=== PATIENT | male | born 1950 | race Caucasian/White ===

== ENCOUNTER 2018-05-21 13:30 | Emergency (ER) | payer MEDICARE, BC, SELFPAY ==
[2018-05-21 13:37] VITALS: BP 129/72; PULSE 70; RESP 18; TEMP 36.7; O2SAT 94
--- NOTE | 2018-05-21 13:44 | ED.GENADUL_ITS ---
Discharge Plan Disposition Patient Disposition: HOME Condition: Stable Discharge Details Chief Complaint: EyeProblem Clinical Impression: Abrasion of cornea, left Primary Care Provider: Nathan Iniguez ED Provider: Talat Lyons Home Meds and New Rx's Prescriptions: New erythromycin 5 mg/gram (0.5 %) ointment 1 applic OP TID 5 Days Qty: 1 RF: 0 No Action diphenhydramine-acetaminophen [Acetaminophen PM] 1 EACH tablet 1 ea PO HS PRNRF: 0 meclizine 25 MG tablet 25 mg PO TID PRNQty: 20 RF: 0 aspirin [Aspir-81] 81 MG tablet,delayed release (DR/EC) 81 mg PO DAILY Qty: 100 RF: 3 potassium chloride 10 MEQ capsule, extended release 10 meq PO DAILY Qty: 60 RF: 6 triamterene-hydrochlorothiazid 1 EACH tablet 1 ea PO DAILY Qty: 90 RF: 3 Atorvastatin Calcium 10 MG tablet 10 mg PO DAILY Qty: 90 RF: 3 hydroxyzine HCl 25 mg tablet 25 mg PO QID PRN Qty: 60 RF: 0 naproxen sodium [Aleve] 220 MG capsule 220 mg PO PRN RF: 0 Discharge Instructions Instructions: Corneal Abrasion (ED) Medical Decision Making PT states he was showering when he had sensation of someting going in his leftt eye this morning, flushed his eye but continued to have discomfort so came here. Denies deep eye pain or vision changes, 20/30 vision in both eyes, perrl, eomi without pain and no fevers. has conjunctival injection of the left sided of the left eye. No foreign body on exam even on eyelid flip. He had immediate relief of pain with tetracaine and iop 10 in each eye. No drainage of the eyes. on flourescein exam has 1mm corneal abrasion on conjunctiva at the 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 Date/Time Provider Initiated Documentation: 05/21/18 13:41 . Limitations to Documentation: no limitations . Information obtained by: patient . History of Present Illness 68 year old M presents to the emergency department with the chief complaint of left eye discomfort, described as mild, with intensity rated at 3. Quality is described as burning, and is localized to the eyes and left. Patient reports no radiation. Patient started experiencing this hour(s) (4) and it has been constant. No exacerbating factors reported . Patient notes no other symptoms.. Patient did receive the following treatments prior to arrival, none Related Data Home Medications Medication Instructions Recorded Confirmed naproxen sodium [Aleve] 220 mg PO PRN 04/01/16 05/21/18 diphenhydramine-acetaminophen 1 ea PO HS PRN 05/05/16 05/21/18 [Acetaminophen Pm Caplet] meclizine 25 mg PO TID PRN #20 tab-cap 11/03/16 05/21/18 aspirin [Aspir 81] 81 mg PO DAILY #100 tab 05/31/17 05/21/18 potassium chloride 10 meq PO DAILY #60 tab-cap 09/27/17 05/21/18 triamterene-hydrochlorothiazid 1 ea PO DAILY #90 tab 09/27/17 05/21/18 hydroxyzine HCl 25 mg tablet 25 mg PO QID PRN #60 tab-cap 04/22/18 05/21/18 erythromycin 1 applic OP TID 5 Days #1 gm 05/21/18 Previous Rx's Medication Instructions Recorded potassium chloride 10 meq PO DAILY #60 tab-cap 09/27/17 triamterene-hydrochlorothiazid 1 ea PO DAILY #90 tab 09/27/17 hydroxyzine HCl 25 mg tablet 25 mg PO QID PRN #60 tab-cap 04/22/18 erythromycin 1 applic OP TID 5 Days #1 gm 05/21/18 Allergies Allergy/AdvReac Type Severity Reaction Status Date / Time formaldehyde Allergy SKIN RASH Unverified 05/21/18 13:36 General Stated Complaint: EyeProblem TODD: 4 Review of Systems Review of Systems All systems reviewed & are unremarkable except as noted in HPI and below Constitutional Denies chills and Denies fever(s) Eyes Denies loss of vision ENT Denies change in voice Cardiovascular Denies chest pain and Denies dyspnea Respiratory Denies dyspnea Gastrointestinal Denies abdominal pain, Denies nausea and Denies vomiting Genitourinary Denies dysuria Integumentary/Breasts Denies rash Neurologic Denies loss of vision PFSH Family History Mother Essential hypertension Cerebrovascular accident Father Colon cancer Sister Age: 64 No problems noted. Social History Smoking/Tobacco Use Status: Never Surgical History Cholecystectomy (04/01/16) colonoscopy (03/25/16) Exam Const General: no acute distress Orientation: alert HENMT Head: normal to inspection Ears: external ears normal General nose exam: external nose normal Mouth: moist mucous membranes Eyes General: appearance normal, both eyes and all related structures Neck Neck: normal visual inspection Resp Effort & Inspection: normal respiratory effort and able to speak in complete sentences Cardio Rate: regular rate Skin General skin exam: no rashes or lesions noted Neuro General: alert and oriented x3 Extrem General: normal to inspection Psych Mental Status: mental status grossly normal Course Vital Signs Temperature 36.7 C 05/21/18 13:37 Pulse 70 05/21/18 13:37 Respiratory Rate 18 05/21/18 13:37 Blood Pressure 129/72 05/21/18 13:37 Pulse Oximetry 94 L 05/21/18 13:37 Temperature 36.7 C 05/21/18 13:37 Temperature Source Temporal Artery Scan 05/21/18 13:37 Pulse 70 05/21/18 13:37 Respiratory Rate 18 05/21/18 13:37 Respiratory Effort 05/21/18 13:37 Blood Pressure 129/72 05/21/18 13:37 Blood Pressure Position Sitting 05/21/18 13:37 Pulse Oximetry 94 L 05/21/18 13:37 Oxygen Delivery Method Room Air 05/21/18 13:37 Oxygen Flow Rate 0 05/21/18 13:37
[2018-05-21] MEDS: Tetracaine 0.5% 4 ML BTL (13:47)
[2018-05-21] MEDS: Fluorescein STRIPS 100/BOX 1 MG (13:47)
== END 2018-05-21 14:02 | disposition home or self-care (01) ==
PROVIDERS: Emergency Provider Emergency Medicine; PCP Family Medicine
DX: S05.02XA Injury of conjunctiva and corneal abrasion without foreign body, left eye, initial encounter (principal); X58.XXXA Exposure to other specified factors, initial encounter
CPT/HCPCS: 99283

== ENCOUNTER 2018-07-13 21:07 | Emergency (ER) | payer MEDICARE, BC, SELFPAY ==
[2018-07-13 21:17] VITALS: BP 145/107; PULSE 80; RESP 16; TEMP 36.9; O2SAT 94
--- NOTE | 2018-07-13 21:48 | ED.GENADUL_ITS ---
Discharge Plan Disposition Patient Disposition: HOME Condition: Good Discharge Details Chief Complaint: Nk/Back Pain Clinical Impression: Back pain Primary Care Provider: Nathan Iniguez ED Provider: Tani Haskins Home Meds and New Rx's Prescriptions: New acetaminophen [Mapap Extra Strength] 500 MG tablet 1,000 mg PO Q6H 5 Days Qty: 60 RF: 0 lidocaine [Lidoderm] 1 PATCH patch 1 patch Topical Q24H Qty: 4 RF: 0 No Action diphenhydramine-acetaminophen [Acetaminophen PM] 1 EACH tablet 1 ea PO HS PRNRF: 0 aspirin [Aspir-81] 81 MG tablet,delayed release (DR/EC) 81 mg PO DAILY Qty: 100 RF: 3 triamterene-hydrochlorothiazid 1 EACH tablet 1 ea PO DAILY Qty: 90 RF: 3 Atorvastatin Calcium 10 MG tablet 10 mg PO DAILY Qty: 90 RF: 3 potassium chloride 10 mEq capsule, extended release 10 meq PO DAILY Qty: 60 RF: 6 Discharge Instructions Instructions: Back Pain (ED) Additional Instructions: Please take the medications as directed. Please double your dose of home potassium for the next 2-3 days. If you notice any worsening of your symptoms, or any new symptoms such as vomiting, diarrhea, fever, chills, shortness of breath, chest pain, numbness, weakness, or fainting , please return immediately to the emergency department for reevaluation. Please follow up with your primary care provider as soon as possible for reassessment and reevaluation. As always, it was a pleasure participating in your medical care today. Referrals: Nathan Iniguez DO [Primary Care Provider] - Discharge Data Discharge Date/Time-TO BE ENTERED AT DEPARTURE: 07/14/18 01:25 Medical Decision Making <GILBERTO Petersen - Last Filed: 07/14/18 23:49> Patient is a 68 year old female presenting today with c/c of right sided mid back pain that began this morning. Indicates CVA area as area of discomfort. Denies change in urinary habits, no hematuria, dysurea, frequency or urgency. Also endorses chronic twinges of lower abdominal pain. States that these twinges have been present since his cholecystectomy several years ago. Denies change in this. States his stool has been more firm than typical, reports that typically his stool is fairly soft. No blood or darkening of stool. Denies rectal pain. Denies CP, SOB, fevers/chills. On exam, patient appears comfortable. Moving well. Indicates CVA area as source of discomfort but none elicited with palpation. No midline tenderness, no paraspinal tenderness. No pain elicited on exam. Full ROM. Abdomen is soft, no tenderness on exam. Pain is reported to be fairly minimal, rates at a 2/10. LE without abnormality, 2+ distal pulses, no edema or calf tenderness. Will obtain laboratory evaluation. At this point, I do not see indication for acute abdomen. Advised that this is unlikely to be nephrolithiasis given discription of pain, no history of this. Also have low suspicion of pyelonephritis as he has no urinary symptoms. Will check CBC, CMP, UA. No abdominal pain on exam. Small amount of blood noted in urine. Potassium is critically low at 2.7. Vin has been hypokalemic historically, this has previously been down to 2.9. He reprots this is why he was switched to a potassium sparing diuretic. Creatinine is elevated, patient appears dehydrated. Discussed this with patient. He is now advising that he has been under a large amount of stress recently, states that hehas not been hydrating as much as he typically does. Plan to hydrate, replenish potassium. With his RBC in urine and right CVA tenderness, will also obtain renal CT. <Tani Haskins, DO - Last Filed: 07/14/18 00:44> EKG 23: 12 Rate 70, sinus rhythm, intervals normal, no significant ST elevations or depressions, no T wave inversions. Subtle U wave is noted in V2 V3 and V4. No other significant abnormalities. No evidence of epsilon wave or delta wave. The case was signed out to me by my colleague April Marie. We are pending CT results at that time. CT scan has returned and shows no evidence of acute process. On reassessment the patient is feeling much better and reassured. Laboratory workup was relatively benign. He does have a low potassium at 2.7, which he states is been a chronic issue. His creatinine is slightly increased compared to normal at 1.57, I have discussed with him the importance of close follow-up with this. Repeat examination continues to demonstrate no focal neurologic deficits, no red flags with his mild back pain. No evidence of urolithiasis on CT, significant orthopedic abnormality per radiology, or other acute process. Patient will be discharged home with instructions for Tylenol, heating pad, and Lidoderm patch. We discussed the importance of close PCP follow-up, continued potassium intake, and red flags for which to return. I have extensively reviewed the treatment plan and discharge instructions with the patient. I have addressed all patient concerns at this time. The patient was made aware of what symptoms to monitor for that would warrant a return to the emergency department. Discussed the plan with the patient, they demonstrate verbal understanding and agreement with our assessment and plan at this time. FINDINGS: Lower thorax: No acute findings. ABDOMEN: Liver: Hepatic steatosis. Number status post cholecystectomy. Gallbladder and bile ducts: See Liver Finding. Pancreas: Normal. No ductal dilation. Spleen: Normal. No splenomegaly. Adrenals: Normal. No mass. Kidneys and ureters: Renal cysts up to 4.7 cm. Stomach and bowel: Colonic diverticula. Appendix: No evidence of appendicitis. PELVIS: Bladder: Unremarkable as visualized. Reproductive: Unremarkable as visualized. ABDOMEN and PELVIS: Intraperitoneal space: Normal. No free air. No significant fluid collection. Bones/joints: No acute fracture. No dislocation. Soft tissues: Unremarkable. Vasculature: Normal. No abdominal aortic aneurysm. Lymph nodes: Normal. No enlarged lymph nodes. IMPRESSION: No acute finding. Dictated and Authenticated by: Talat Phelps MD HPI <GILBERTO Petersen - Last Filed: 07/14/18 23:49> General Mode of arrival: ambulatory . Date/Time Provider Initiated Documentation: 07/13/18 21:09 . Limitations to Documentation: no limitations . Information obtained by: patient . History of Present Illness 68 year old M presents to the emergency department with the chief complaint of right CVA tenderness, described as mild, with intensity rated at 2. Quality is described as aching and dull, and is localized to the back. Patient reports no radiation. Patient started experiencing this hour(s) and it has been constant. other things that improve symptom(s), (laying flat) No exacerbating factors reported . Patient notes nausea/vomiting (reports short episode of nausea earlier today, normal appetite); denies chest pain, cough, diaphoresis, fever/chills, headaches, loss of appetite, malaise, rash, shortness of breath, syncope and weakness. Patient did receive the following treatments prior to arrival, none Related Data Home Medications Medication Instructions Recorded Confirmed diphenhydramine-acetaminophen 1 ea PO HS PRN 05/05/16 07/13/18 [Acetaminophen Pm Caplet] aspirin [Aspir 81] 81 mg PO DAILY #100 tab 05/31/17 07/13/18 triamterene-hydrochlorothiazid 1 ea PO DAILY #90 tab 09/27/17 07/13/18 potassium chloride ER 10 mEq 10 meq PO DAILY #60 tab-cap 06/20/18 07/13/18 capsule,extended release acetaminophen [Mapap Extra 1,000 mg PO Q6H 5 Days #60 tab 07/14/18 Strength] lidocaine [Lidoderm] 1 patch TOPICAL Q24H #4 patch 07/14/18 Previous Rx's Medication Instructions Recorded triamterene-hydrochlorothiazid 1 ea PO DAILY #90 tab 09/27/17 potassium chloride ER 10 mEq 10 meq PO DAILY #60 tab-cap 06/20/18 capsule,extended release acetaminophen [Mapap Extra 1,000 mg PO Q6H 5 Days #60 tab 07/14/18 Strength] lidocaine [Lidoderm] 1 patch TOPICAL Q24H #4 patch 07/14/18 Allergies Allergy/AdvReac Type Severity Reaction Status Date / Time formaldehyde Allergy SKIN RASH Unverified 07/13/18 21:19 General Stated Complaint: Nk/Back Pain TODD: 4 <Tani Haskins DO - Last Filed: 07/14/18 00:44> HPI Narrative: . Review of Systems <GILBERTO Petersen - Last Filed: 07/14/18 23:49> Constitutional Reports as per HPI, Denies chills, Denies fatigue, Denies fever(s) and Denies headache(s) ENT Denies headache(s) Cardiovascular Reports as per HPI, Denies chest pain and Denies dyspnea Respiratory Denies dyspnea Gastrointestinal Reports as per HPI Genitourinary Denies system reviewed and no additional complaints, except as docu (patient denies any change in urinary habits) Musculoskeletal Reports as per HPI and Reports back pain Integumentary/Breasts Reports as per HPI and Denies rash Neurologic Denies headache(s) Endocrine Denies fatigue PFSH <GILBERTO Petersen - Last Filed: 07/14/18 23:49> Surgical History Cholecystectomy (04/01/16) colonoscopy (03/25/16) Social History housing: house lives independently: Yes number of children: 2 current occupational status: retired frequency: 3-4 times per week Smoking/Tobacco Use Status: Never alcohol intake: current alcohol intake frequency: a few times a month substance use type: does not use seatbelt use: always Exam <GILBERTO Petersen - Last Filed: 07/14/18 23:49> Const General: cooperative, healthy appearing, comfortable, no acute distress and well developed Nutritional Appearance: average body habitus and well nourished Orientation: alert and awake HENMT Head: normal to inspection Mouth: moist mucous membranes Resp Effort & Inspection: normal respiratory effort, able to speak in complete sentences and no respiratory distress Auscultation: clear to auscultation bilaterally, no rales, no rhonchi and no wheezes Cardio Rate: regular rate Rhythm: regular rhythm Heart Sounds: S1 normal and S2 normal Back/Spine/Pelvis Back: no CVA tenderness Thoracic/Lumbar Spine: thoracic and lumbar spine normal to inspection, thoraco- lumbar ROM normal, No pain with thoraco-lumbar ROM, No paraspinal tenderness, No thoraco-lumbar ROM limited, No thoraco-lumbar spasm, No thoracic spinal tenderness and No lumbar spinal tenderness Skin General skin exam: no rashes or lesions noted Trauma: no lacerations or abrasions Neuro General: alert and awake Cognition: normal cognition Speech: speech normal Gait: normal gait Extrem General: normal to inspection, no pedal edema, no calf tenderness, normal gait, no limp and other (2+ distal pulses) Psych Appearance: grossly normal and well kempt Mental Status: mental status grossly normal Speech and Movement: speech and movement normal Course <GILBERTO Petersen - Last Filed: 07/14/18 23:49> Vital Signs Temperature 36.9 C 07/13/18 21:17 Pulse 80 07/13/18 21:17 Respiratory Rate 16 07/13/18 21:17 Blood Pressure 145/107 H 07/13/18 21:17 Pulse Oximetry 94 L 07/13/18 21:17 Temperature 36.9 C 07/13/18 21:17 Temperature Source Skin 07/13/18 21:17 Pulse 80 07/13/18 21:17 Respiratory Rate 16 07/13/18 21:17 Respiratory Effort 07/13/18 21:24 Blood Pressure 145/107 H 07/13/18 21:17 Blood Pressure Position Sitting 07/13/18 21:17 Pulse Oximetry 94 L 07/13/18 21:17 Oxygen Delivery Method Room Air 07/13/18 21:17 Oxygen Flow Rate 0 07/13/18 21:17 Pain Level 2 07/13/18 21:17
[2018-07-13] MEDS: Ibuprofen 600 MG TAB PO (21:57)
[2018-07-13] MEDS: Acetaminophen 500 MG TAB 1000 MG PO (21:57)
[2018-07-13 21:59] LABS: Abs Immature Grans 0.02 k/cumm (0.0-0.09); Absolute Basophil Count 0.05 k/cumm (0.0-0.2); Absolute Eosinophil Count 0.16 k/cumm (0.0-0.7); Absolute Lymphocyte Count 2.74 k/cumm (1.2-3.4); Absolute Monocyte Count 0.93 k/cumm (0.11-0.7); Basophils % 0.5; Eosinophils % 1.5; HCT 47.4 % (40.0-50.0); HGB 16.5 g/dL (13.5-17.5); Immature Grans % 0.2; Lymphocytes % 24.9; Mean Corp. HGB Concentration 34.8 g/dL (32.0-36.0); Mean Corpuscular Hemoglobin 31.6 pg (27.0-33.0); Mean Corpuscular Volume 90.8 fL (80-95); Mean Platelet Volume 9.9 fL (8.0-11.0); Monocytes % 8.5; Neutrophils % 64.4; Platelet Count 241 x1000/uL (130-400); RBC 5.22 m/cumm (4.50-6.00); RBC Distribution Width 12.6 % (11.8-14.1); White Blood Cell Count 10.99 k/cumm (4.4-10.8)
[2018-07-13 22:00] LABS: Absolute Neutrophil Count 7.08 k/cumm (1.2-6.7)
[2018-07-13 22:10] LABS: Bilirubin Negative (Negative); Blood Small (Negative); Clarity Clear; Glucose Negative (Negative); Ketones Negative (Negative); Leukocyte Esterase Negative (Negative); Nitrite Negative (Negative); Urobilinogen 0.2 EU/dL (Up TO 0.2)
[2018-07-13 22:13] LABS: ALT 47 U/L (12-78); AST 25 U/L (15-37); Albumin 3.9 g/dL (3.4-5.0); Alkaline Phosphatase 76 U/L (46-116); BUN 20 mg/dL (7-18); Bilirubin, Total 1.1 mg/dL (0.2-1.0); CREATININE 1.57 mg/dL (0.70-1.30); Calcium 9.4 mg/dL (8.5-10.1); Chloride 102 mmol/L (98-107); Estimated GFR 44.15 (mL/min/1.73m2); Glucose 131 mg/dL (70-100); Sodium 140 mmol/L (136-145); Total Protein 7.5 g/dL (6.4-8.2)
[2018-07-13 22:19] LABS: Potassium 2.7 mmol/L (3.5-5.1)
[2018-07-13 22:19] LABS: Bacteria Negative HPF (Negative); C & S Indicated? No; Casts Negative LPF (Negative); Crystals Negative HPF (Negative); Epithelial Cells Negative HPF (Negative); Mucus Negative (Negative); WBC 0-2 HPF (0-5)
--- NOTE | 2018-07-13 22:25 | DI.CT_ITS ---
SYMPTOM/DIAGNOSIS: RT CVA TENDERNESS RENAL COLIC CT: Routine examination. Comparison is made with 04/01/16. Renal colic CT was performed according to protocol. The lung bases are clear. Lack of IV contrast does limit evaluation of the abdominal and pelvic organs. The unenhanced visualized portions of the liver, spleen, pancreas and adrenal glands are unremarkable. The patient is status post cholecystectomy. No biliary ductal dilatation is seen. The kidneys show no evidence of nephrolithiasis or hydronephrosis. There are bilateral renal cysts, the largest is seen in the superior pole of the left kidney and measures 5.6 cm. in diameter. The urinary bladder is intact. There is an enlarged prostate gland which impinges into the base of the urinary bladder. There is atherosclerosis of the abdominal aorta but no aneurysmal dilatation. No significant abdominal or pelvic adenopathy, ascites or pneumoperitoneum is seen. There is diverticulosis of the colon but no evidence of acute diverticulitis. No findings of acute appendicitis are present. No evidence of bowel obstruction or bowel inflammatory or infectious process is seen. Degenerative changes are seen in the spine. IMPRESSION: No acute abnormality. No evidence of obstructive uropathy.
[2018-07-13] MEDS: Normal Saline 1,000 ML 1000 ML IV (23:05)
[2018-07-13] MEDS: POTASSIUM CHLORIDE 20 MEQ/100 ML BAG 50 MEQ IVPB (23:05)
[2018-07-13] MEDS: Potassium Chloride 20 MEQ TABCR 40 MEQ PO (23:05)
[2018-07-13 23:43] VITALS: BP 139/89; PULSE 78; RESP 16; TEMP 36.9; O2SAT 95
--- NOTE | 2018-07-13 23:48 | DI.VRAD_ITS ---
EXAM: CT Abdomen and Pelvis Without Contrast EXAM DATE/TIME: 07/13/2018 10:27 PM CLINICAL HISTORY: 68 years old, male; Pain; Abdominal pain; Prior surgery TECHNIQUE: Axial computed tomography images of the abdomen and pelvis without contrast. Coronal and sagittal reformatted images were created and reviewed. COMPARISON: CT ABD PELVIS WITH CONTRAST 04/01/2016 11:02 AM FINDINGS: Lower thorax: No acute findings. ABDOMEN: Liver: Hepatic steatosis. Number status post cholecystectomy. Gallbladder and bile ducts: See Liver Finding. Pancreas: Normal. No ductal dilation. Spleen: Normal. No splenomegaly. Adrenals: Normal. No mass. Kidneys and ureters: Renal cysts up to 4.7 cm. Stomach and bowel: Colonic diverticula. Appendix: No evidence of appendicitis. PELVIS: Bladder: Unremarkable as visualized. Reproductive: Unremarkable as visualized. ABDOMEN and PELVIS: Intraperitoneal space: Normal. No free air. No significant fluid collection. Bones/joints: No acute fracture. No dislocation. Soft tissues: Unremarkable. Vasculature: Normal. No abdominal aortic aneurysm. Lymph nodes: Normal. No enlarged lymph nodes. IMPRESSION: No acute finding. Dictated and Authenticated by: Talat Phelps MD. Ordering:ADARSH Sullivan MD
[2018-07-14 01:20] VITALS: BP 130/87; PULSE 75; RESP 16; TEMP 36.9; O2SAT 95
== END 2018-07-14 01:25 | disposition home or self-care (01) ==
PROVIDERS: Physician Assistant; Emergency Provider Student in an Organized Health Care Education/Training Program; PCP Family Medicine
DX: M54.5 Low back pain (principal); E87.6 Hypokalemia; I10 Essential (primary) hypertension
CPT/HCPCS: 36415; 80053; 93005; 96361; 96365; 96366; 99284; 74176; 81003; 81015; 85025; 93010; 99285; J3480

== ENCOUNTER 2018-07-18 14:55 | Outpatient (REF) | payer MEDICARE, BC, SELFPAY ==
[2018-07-18 15:25] LABS: Potassium 3.6 mmol/L (3.5-5.1)
== END 2018-07-18 15:15 ==
LOC: LBN 14:55
PROVIDERS: Nurse Practitioner Adult Health; PCP Family Medicine; Visit Provider Family Medicine
DX: I10 Essential (primary) hypertension (principal)
CPT/HCPCS: 80048; 84132

== ENCOUNTER 2018-11-29 08:24 | Outpatient (CLI) | payer MEDICARE, BC, SELFPAY ==
[2018-11-29 11:01] LABS: Anion Gap 10.8 mmol/L (3-11); BUN 23 mg/dL (7-18); CO2 31.2 mmol/L (21.0-32.0); CREATININE 1.46 mg/dL (0.70-1.30); Calcium 9.5 mg/dL (8.5-10.1); Chloride 100 mmol/L (98-107); Estimated GFR 48.02 (mL/min/1.73m2); Glucose 110 mg/dL (70-100); Potassium 3.6 mmol/L (3.5-5.1); Sodium 142 mmol/L (136-145)
== END 2018-11-29 08:44 ==
PROVIDERS: PCP Family Medicine; Visit Provider Family Medicine
DX: I10 Essential (primary) hypertension (principal)
CPT/HCPCS: 36415; 80048

== ENCOUNTER 2019-11-29 09:24 | Outpatient (CLI) | payer MEDICARE, BC, SELFPAY ==
[2019-11-30 17:07] LABS: COVID-19 RT-PCR Result NEGATIVE (Negative)
== END 2019-11-29 09:44 ==
PROVIDERS: PCP Family Medicine; Visit Provider Family Medicine
DX: Z03.818 Encounter for observation for suspected exposure to other biological agents ruled out (principal)
CPT/HCPCS: U0003

== ENCOUNTER 2020-01-02 18:22 | Emergency (ER) | payer MEDICARE, BC, SELFPAY ==
[2020-01-02] VITALS (44 sets, daily range): BP systolic 126–157; BP diastolic 71–87; PULSE 58–93; RESP 8–21; TEMP 37; O2SAT 87–94
[2020-01-02] MEDS: methylPREDNISolone SUCC 125 MG VIAL (18:30)
[2020-01-02] MEDS: Normal Saline 1,000 ML 1000 ML IV (18:30)
--- NOTE | 2020-01-02 18:44 | ED.GENADUL_ITS ---
Discharge Plan Disposition Patient Disposition: HOME Condition: Good Discharge Details Chief Complaint: Allergic Clinical Impression: Allergic reaction to bee sting Primary Care Provider: Nathan Iniguez ED Provider: Zach Lanier Meds and New Rx's Prescriptions: New prednisone 20 mg tablet See Rx Instructions .ROUTE .COMPLEX Qty: 12 RF: 0 epinephrine 0.3 mg/0.3 mL auto-injector 0.3 ml SC ONCE PRN (Reason: anaphylaxis) Qty: 2 RF: 0 Continued diphenhydramine-acetaminophen [Acetaminophen PM] 1 EACH tablet 1 ea PO HS PRNRF: 0 aspirin [Aspir-81] 81 MG tablet,delayed release (DR/EC) 81 mg PO DAILY Qty: 100 RF: 3 triamterene-hydrochlorothiazid 37.5-25 mg tablet 1 tab PO DAILY Qty: 90 RF: 3 atorvastatin 10 mg tablet 10 mg PO DAILY Qty: 90 RF: 3 fluorouracil 5 % cream 1 applic TP BID RF: 0 potassium chloride 20 mEq tablet extended release 20 meq PO DAILY Qty: 90 RF: 3 Discharge Instructions Instructions: Insect Bite or Sting (ED), General Allergic Reaction (ED) Additional Instructions: Drink plenty of fluids and get plenty of rest. Alternate tylenol and motrin as needed and directed for pain. Take the steroids until finished. You were given an EpiPen prescription in case of any future allergic reactions to bee stings in which there is oral or respiratory involvement. Follow-up with your primary care doctor in 1 week. Return to the emergency department with any worsening or new concerning symptoms. Referrals: Nathan Iniguez DO [Primary Care Provider] - Discharge Data Discharge Physician: Porsha Baugh Medical Decision Making <Porsha Baugh DO - Last Filed: 01/02/20 20:24> 1830 -- 69-year-old male with a history of hypertension hyperlipidemia presents for generalized pruritic hives and lip swelling, tingling and numbness that started 30 minutes after bee sting to the forehead. 2 tabs of 25 mg Benadryl taken prior to arrival. Vitals within normal limits. Patient noted to have upper and lower lip swelling in addition to urticaria noted to chest, abdomen, back, bilateral axilla and groin. Normal oropharynx. Lungs clear. Abdomen soft and nontender. IV placed on arrival in addition to IV fluids, 125 Solu-Medrol IV and 0.3 mg epinephrine IM. Patient informed that we will be observing for the next 4 to 6 hours for rebound symptoms after epinephrine injection. He is agreeable with plan. 1954 --patient feels much better. Rash and lip swelling significantly improved. Sensation of lip tingling much improved. 1999 -- case endorsed to Dr. Lanier to follow observation period until at ear liest 1030pm. If pt continues to do well, can discharge to home with prednisone and epi-pen. <Zach Lanier MD - Last Filed: 01/02/20 22:38> Patient continues to do fine. No return of hives or lip swelling. Stable vital signs. Would like to be discharged at this time. Will go home with prescriptions for EpiPen and steroids as per Dr. Baugh. Follow-up with primary care as needed. Return to ED for severe recurrent symptoms/use of EpiPen. HPI <Porsha Baugh DO - Last Filed: 01/02/20 20:24> General Mode of arrival: ambulatory . Date/Time Provider Initiated Documentation: 01/02/20 18:23 . Limitations to Documentation: no limitations . Information obtained by: patient . HPI Narrative: Patient is a 69-year-old male with a history of hypertension, hyperlipidemia who presents for generalized hives and lip swelling and tingling that started within the last 30 minutes after stung by a bee in the forehead. Patient states he was opening the door to his shed when he was suddenly stung by a bee in the center of his forehead. Patient states he felt instant intense pain and then within the next 15 to 20 minutes developed generalized hives noted to chest, bilateral armpits, groin, abdomen and back. He said he also started feeling numbness, tingling and swelling of his lips. He denies throat swelling, difficulty swallowing, chest pain, shortness of breath, nausea, vomiting or abdominal pain. States he took 2 tabs of 25 mg Benadryl and applied Benadryl cream to the area without relief. Related Data Home Medications Medication Instructions Recorded Confirmed diphenhydramine-acetaminophen 1 ea PO HS PRN 05/05/16 01/02/20 [Acetaminophen PM] aspirin [Aspir-81] 81 mg PO DAILY #100 tab 05/31/17 01/02/20 triamterene 37.5 1 tab PO DAILY #90 tab 12/19/18 01/02/20 mg-hydrochlorothiazide 25 mg tablet atorvastatin 10 mg tablet 10 mg PO DAILY #90 tab 04/04/19 01/02/20 fluorouracil 5 % topical cream 1 applic TP BID 04/17/19 01/02/20 potassium chloride 20 mEq 20 meq PO DAILY #90 tab 05/08/19 01/02/20 tablet,extended release epinephrine 0.3 ml SC ONCE PRN #2 each 01/02/20 prednisone See Rx Instructions .ROUTE 01/02/20 .COMPLEX #12 tab Previous Rx's Medication Instructions Recorded triamterene 37.5 1 tab PO DAILY #90 tab 12/19/18 mg-hydrochlorothiazide 25 mg tablet atorvastatin 10 mg tablet 10 mg PO DAILY #90 tab 04/04/19 potassium chloride 20 mEq 20 meq PO DAILY #90 tab 05/08/19 tablet,extended release epinephrine 0.3 ml SC ONCE PRN #2 each 01/02/20 prednisone See Rx Instructions .ROUTE 01/02/20 .COMPLEX #12 tab Allergies Allergy/AdvReac Type Severity Reaction Status Date / Time formaldehyde Allergy Mild SKIN RASH Verified 01/02/20 18:31 General Stated Complaint: Allergic TODD: 2 Review of Systems <Porsha Baugh DO - Last Filed: 01/02/20 20:24> All systems reviewed & are unremarkable except as noted in HPI and below Constitutional Constitutional: Reports as per HPI, Denies chills and Denies fever(s) Eyes Eyes: Denies blurry vision ENT Ears, Nose, Mouth, and Throat: Denies dizziness, Denies sore throat, Denies throat swelling and Reports other (lip swelling) Cardiovascular Cardiovascular: Denies chest pain and Denies dyspnea Respiratory Respiratory: Denies cough and Denies dyspnea Gastrointestinal Gastrointestinal: Denies abdominal pain, Denies diarrhea and Denies vomiting Genitourinary Genitourinary: Denies hematuria and Denies dysuria Musculoskeletal Musculoskeletal: Denies back pain and Denies numbness Integumentary/Breasts Skin/Breast: Denies lesions and Reports rash Neurologic Neurologic: Denies dizziness, Denies localized weakness and Denies numbness Allergic/Immunologic Allergic/Immunologic: Denies throat swelling PFS <DO Diana Hercules Last Filed: 01/02/20 20:24> Medical History (Updated 01/02/20 @ 19:25 by Porsha Baugh DO) Chronic kidney disease (Acute) Seasonal affective disorder (Acute) Surgical History Cholecystectomy (04/01/16) Amol Granados D.O colonoscopy (03/25/16) Social History (Updated 07/10/19 @ 15:43 by Ariadne Choudhury LPN) Smoking/Tobacco Use Status: Never Alcohol Intake: current Alcohol Intake frequency: a few times a month Drug use: Never Substance use type: does not use Housing: house Number of Children: 2 number of grandchildren: 3 Communication Needs: None Education Level: college current occupation: retired What is your relationship status?: Panel score (0-1 are the most socially isolated patients): 0 What type of physical activity do you participate in: walking and other Details: golfing Frequency: 3-4 times per week Seatbelt use: always Working smoke detector in home: Yes Carbon monox detector in home: Yes Do you feel safe in your relationship?: Yes Exam <Porsha Baugh DO - Last Filed: 01/02/20 20:24> Const General: cooperative, healthy appearing and no acute distress HENMT Head: normal to inspection Ears: hearing grossly normal bilaterally and external ears normal Face and sinus: normal facial exam Mouth: lip abnormal (mild upper and lower lip edema) Throat: posterior oropharynx normal Eyes General: appearance normal, both eyes and all related structures Pupils: PERRL EOM: EOM intact bilaterally Neck Neck: normal visual inspection and No submandibular swelling Lymphatic: no lymphadenopathy noted Chest Chest: normal inspection of the chest and no tenderness Resp Effort & Inspection: normal respiratory effort and able to speak in complete sentences Auscultation: clear to auscultation bilaterally Cardio Rate: regular rate Rhythm: regular rhythm GI Inspection: normal to inspection Palpation: soft, not firm, not rigid and nontender Auscultation: normal bowel sounds Skin Rashes: rashes noted (Diffuse hives to chest, abdomen, back, bilateral axilla/groin) Neuro General: patient alert, patient awake and patient oriented x3 Cognition: normal cognition Speech: speech normal Motor: muscle tone normal throughout Sensory Exam: no sensory deficits noted Extrem General: normal to inspection, full ROM, capillary refill normal and no edema Psych Appearance: grossly normal Mental Status: mental status grossly normal Speech and Movement: speech and movement normal Affect: normal affect Course <Porsha Baugh DO - Last Filed: 01/02/20 20:24> Vital Signs Vital signs: Vital Signs Temperature 98.6 F 01/02/20 18:28 Pulse 88 01/02/20 18:28 Respiratory Rate 15 01/02/20 18:28 Blood Pressure 135/85 01/02/20 18:28 Pulse Oximetry 94 L 01/02/20 18:28 Temperature 98.6 F 01/02/20 18:28 Temperature Source Skin 01/02/20 18:28 Pulse 88 01/02/20 18:28 Respiratory Rate 15 01/02/20 18:28 Respiratory Effort Non-Labored 01/02/20 18:28 Blood Pressure 135/85 01/02/20 18:28 Blood Pressure Position Sitting 01/02/20 18:28 Pulse Oximetry 94 L 01/02/20 18:28 Oxygen Delivery Method Room Air 01/02/20 18:28 Oxygen Flow Rate 0 01/02/20 18:28 Pain Level 0 01/02/20 18:28 Sign Out <Porsha Baugh DO - Last Filed: 01/02/20 20:24> Sign Out Data: Sign Out Comment: Here for 4-6 hour observation period post epinephrine injection which is approximately until earliest at 1030pm. If he continues to do well, can discharge to home. Last updated by Porsha Baugh DO at 01/02/20 19:45
[2020-01-02] MEDS: EPINEPHrine 1 MG/ML AMP pres-free (18:45)
--- NOTE | 2020-01-02 19:56 | NUR.NOTE ---
Patient is resting comfortably with his eyes closed and the lights off. VSSNursing Note:
== END 2020-01-02 22:40 | disposition home or self-care (01) ==
PROVIDERS: Emergency Provider Emergency Medicine; PCP Family Medicine
DX: T63.441A Toxic effect of venom of bees, accidental (unintentional), initial encounter (principal); T78.3XXA Angioneurotic edema, initial encounter; L29.8 Other pruritus; R20.2 Paresthesia of skin; I12.9 Hypertensive chronic kidney disease with stage 1 through stage 4 chronic kidney disease, or unspecified chronic kidney disease; N18.9 Chronic kidney disease, unspecified
CPT/HCPCS: 96361; 96372; 96374; 99284; J0171; J2930

== ENCOUNTER 2020-03-25 22:52 | Emergency (ER) | payer MEDICARE, BC, SELFPAY ==
--- NOTE | 2020-03-25 22:45 | RT.EKG_ITS ---
APPROVED REPORT Exam: Resting ECG Patient Location: E HR:83 bpm ECG Measurements Heart Rate 83 AXIS LA 174 P 37 QRSd 99 QRS -16 QT 410 T 53 QTc 481 Conclusion Sinus rhythm...normal P axis, V-rate 60- 99 Ventricular bigeminy...bigeminy string>4 w/ V complexes Sinus pause...long R-R interval, normal QRSd Posterior infarct, old...prom R T, V1-V3 or Q >40mS, V7-V9
[2020-03-25 22:57] VITALS: BP 160/73; PULSE 58; RESP 16; TEMP 36.6; O2SAT 97
[2020-03-25 22:59] VITALS: RESP 16
--- NOTE | 2020-03-25 23:00 | DI.RAD_ITS ---
EXAM: XR CHEST 2V PA LATERAL CLINICAL HISTORY: chest pain TECHNIQUE: 2D digital imaging was performed. COMPARISON: CR CHEST 2 VIEWS PA,LAT from 04/09/2016 FINDINGS: The heart is not enlarged. The lungs are clear and well expanded. No pleural effusion seen. Mediastin al contours appear intact. IMPRESSION: Normal chest RADIATION DOSE DELIVERED: Total DLP
[2020-03-25 23:05] VITALS: BP 117/79
--- NOTE | 2020-03-25 23:08 | ED.GENADUL_ITS ---
Discharge Plan Disposition Patient Disposition: HOME Condition: Stable Discharge Details Clinical Impression: Hypertension, Chronic kidney disease Primary Care Provider: Nathan Iniguez ED Provider: Talat Lyons Home Meds and New Rx's Prescriptions: Continued atorvastatin 10 mg tablet 10 mg PO DAILY Qty: 90 RF: 3 lisinopril 10 mg tablet 10 mg PO DAILY Qty: 90 RF: 3 diphenhydramine-acetaminophen [Acetaminophen PM] 1 EACH tablet 1 ea PO HS PRNRF: 0 aspirin [Aspir-81] 81 MG tablet,delayed release (DR/EC) 81 mg PO DAILY Qty: 100 RF: 3 fluorouracil 5 % cream 1 applic TP BID RF: 0 potassium chloride 20 mEq tablet extended release 20 meq PO DAILY Qty: 90 RF: 3 triamterene-hydrochlorothiazid 37.5-25 mg tablet 1 tab PO DAILY Qty: 90 RF: 3 epinephrine 0.3 mg/0.3 mL auto-injector 0.3 ml SC ONCE PRN (Reason: anaphylaxis) Qty: 2 RF: 0 Discharge Instructions Additional Instructions: you're blood work and xray did not show any concerning findings, and your vital signs were within normal limits follow up with your primary care provider within 1-2 weeks if you feel more ill, have chest pain/pressure or difficulty breathing return to the emergency department Medical Decision Making 69 yo male with hx of ckd, hld, htn, who comes in with cc of not feeling well today. States he woke up today just not feeling well. He noted feeling like his BP was high this morning because he felt his pulse was pounding and he checked it and it was 160. He tried to sleep but was feeling anxious about his blood pressure so came here. He denies any chest pain, fevers, dyspnea, abdominal pain, headache. He has no focal motor or sensation deficits with clear speech, cn ii-xii intact nih of 0. Soft nontender abdomen. He does have frequent pvc's on his ekg. Given the symptoms unclear exact etiology for him not feeling well, given lack of chest pain or pressure doubt acs or other entities such as PE (also no hypoxia or tachycardia). No tearing back pain and normal vascular exam so doubt dissection. Will evaluate for electrolyte disorders and monitor. xray and labs show no significant abnormalities and on tele is in sinus rhythm with no pvc's currently. Given over 3 hours of symptoms do not feel second troponin indicated especially with lack of chest pain. Ambulating without any symptoms and feels well now that his BP is 120/70. Will have him f/u with his pcp and return precautions given Differential Diagnosis Differential Diagnosis: electrolyte abnormality, hypertension, palpitations Medical Records Medical records reviewed: Yes I reviewed the patient's medical records. Imaging Data Radiologic Study: Attestation: I personally reviewed and interpreted this imaging study as follows: Imaging: X-Ray Radiologist's impression: no acute findings Lab Data Lab results reviewed: Yes I reviewed the patient's lab results. ECG Data Attestation: I personally reviewed and interpreted this ECG (s) as follows: Prior ECG tracings: not available for review Interpretation: sinus rhythm, hr 83, pr 173, frequent pvcs HPI General Mode of arrival: ambulatory . Date/Time Provider Initiated Documentation: 03/25/20 22:55 . Limitations to Documentation: no limitations . Information obtained by: patient . History of Present Illness 69 year old M presents to the emergency department with the chief complaint of not feeling well, and it has been constant. No relieving factors improve symptom(s), No exacerbating factors reported . Patient did receive the following treatments prior to arrival, none Related Data Home Medications Medication Instructions Recorded Confirmed diphenhydramine-acetaminophen 1 ea PO HS PRN 05/05/16 03/25/20 [Acetaminophen PM] aspirin [Aspir-81] 81 mg PO DAILY #100 tab 05/31/17 03/25/20 fluorouracil 5 % topical cream 1 applic TP BID 04/17/19 03/25/20 potassium chloride 20 mEq 20 meq PO DAILY #90 tab 05/08/19 03/25/20 tablet,extended release epinephrine 0.3 ml SC ONCE PRN #2 each 01/02/20 03/25/20 triamterene 37.5 1 tab PO DAILY #90 tab 01/04/20 03/25/20 mg-hydrochlorothiazide 25 mg tablet atorvastatin 10 mg tablet 10 mg PO DAILY #90 tab 03/08/20 03/25/20 lisinopril 10 mg tablet 10 mg PO DAILY #90 tab 03/08/20 03/25/20 Previous Rx's Medication Instructions Recorded potassium chloride 20 mEq 20 meq PO DAILY #90 tab 05/08/19 tablet,extended release epinephrine 0.3 ml SC ONCE PRN #2 each 01/02/20 triamterene 37.5 1 tab PO DAILY #90 tab 01/04/20 mg-hydrochlorothiazide 25 mg tablet atorvastatin 10 mg tablet 10 mg PO DAILY #90 tab 03/08/20 lisinopril 10 mg tablet 10 mg PO DAILY #90 tab 03/08/20 Allergies Allergy/AdvReac Type Severity Reaction Status Date / Time formaldehyde Allergy Mild SKIN RASH Verified 03/08/20 08:50 Bee sting Allergy Unknown Uncoded 01/03/20 11:34 General Stated Complaint: GenMedical TODD: 3 Review of Systems All systems reviewed & are unremarkable except as noted in HPI and below Constitutional Constitutional: Denies chills, Denies fever(s) and Denies weakness Cardiovascular Cardiovascular: Denies chest pain and Denies dyspnea Respiratory Respiratory: Denies cough and Denies dyspnea Gastrointestinal Gastrointestinal: Denies abdominal pain, Denies nausea and Denies vomiting Musculoskeletal Musculoskeletal: Denies joint swelling Neurologic Neurologic: Denies weakness Psychiatric Psychiatric: Denies depression [facility] Medical History (Updated 03/25/20 @ 23:59 by Talat Lyons MD) Chronic kidney disease Seasonal affective disorder Surgical History Cholecystectomy (04/01/16) Amol Granados D.O colonoscopy (03/25/16) Family History Mother Essential hypertension Stroke Father Colon cancer Sister Age: 66 No problems noted. Social History (Updated 07/10/19 @ 15:43 by Ariadne Choudhury LPN) Smoking/Tobacco Use Status: Never Alcohol Intake: current Alcohol Intake frequency: a few times a month Drug use: Never Substance use type: does not use Housing: house Number of Children: 2 number of grandchildren: 3 Communication Needs: None Education Level: college current occupation: retired What is your relationship status?: Panel score (0-1 are the most socially isolated patients): 0 What type of physical activity do you participate in: walking and other Details: golfing Frequency: 3-4 times per week Seatbelt use: always Working smoke detector in home: Yes Carbon monox detector in home: Yes Do you feel safe at home: Yes Do you feel safe in your relationship?: Yes Exam Const General: no acute distress Orientation: alert HENMT Head: normal to inspection Ears: external ears normal General nose exam: external nose normal Mouth: moist mucous membranes Eyes General: appearance normal, both eyes and all related structures Neck Neck: normal visual inspection Resp Effort & Inspection: normal respiratory effort and able to speak in complete sen tences Cardio Rate: regular rate GI Palpation: soft and nontender Skin General skin exam: no rashes or lesions noted Neuro General: patient alert and patient oriented x3 Extrem General: normal to inspection Psych Mental Status: mental status grossly normal Course Vital Signs Vital signs: Vital Signs Temperature 36.6 C 03/25/20 22:57 Pulse 58 L 03/25/20 22:57 Respiratory Rate 16 03/25/20 22:57 Blood Pressure 160/73 H 03/25/20 22:57 Pulse Oximetry 97 03/25/20 22:57 Temperature 36.6 C 03/25/20 22:57 Temperature Source Temporal Artery Scan 03/25/20 22:57 Pulse 58 L 03/25/20 22:57 Respiratory Rate 16 03/25/20 22:59 Respiratory Effort 03/25/20 22:59 Respiratory Depth Normal 03/25/20 22:59 Respiratory Pattern Normal 03/25/20 22:59 Blood Pressure 117/79 03/25/20 23:05 Blood Pressure Position Sitting 03/25/20 22:57 Pulse Oximetry 97 03/25/20 22:57 Oxygen Delivery Method Room Air 03/25/20 22:57 Oxygen Flow Rate 0 03/25/20 22:57
[2020-03-25 23:25] LABS: Abs Immature Grans 0.04 10^3/uL (0.0-0.06); Absolute Basophil Count 0.07 10^3/uL (0.0-0.2); Absolute Eosinophil Count 0.24 10^3/uL (0.0-0.7); Absolute Lymphocyte Count 3.63 10^3/uL (1.2-3.4); Absolute Neutrophil Count 5.08 10^3/uL (1.2-6.7); Basophils % 0.7; Eosinophils % 2.4; HCT 47.1 % (40.0-50.0); HGB 16.1 g/dL (13.5-17.5); Immature Grans % 0.4; Lymphocytes % 36.8; MCH 31.7 pg (27.0-33.0); MCHC 34.2 % (32.0-36.0); MCV 92.7 fL (80-95); MPV 9.9 fL (8.0-11.0); Monocytes % 8.1; Neutrophils % 51.6; Nucleated RBC 0 %; Platelet Count 240 10^3/uL (130-400); RBC 5.08 10^6/uL (4.36-5.78); RDW 11.9 % (11.8-14.1); RDW-SD 40.2 fL; WBC 9.86 10^3/uL (4.4-10.8)
[2020-03-25 23:39] LABS: ALT 34 U/L (16-63); AST 19 U/L (15-37); Albumin 3.9 g/dL (3.4-5.0); Alkaline Phosphatase 71 U/L (46-116); Anion Gap 7.1 mmol/L (3-11); BUN 27 mg/dL (7-18); Bilirubin, Total 0.8 mg/dL (0.2-1.0); CO2 29.9 mmol/L (21.0-32.0); CREATININE 1.69 mg/dL (0.70-1.30); Calcium 9.3 mg/dL (8.5-10.1); Chloride 102 mmol/L (98-107); Estimated GFR 40.44 (mL/min/1.73m2); Glucose 119 mg/dL (74-106); Magnesium 2.1 mg/dL (1.8-2.4); Potassium 3.3 mmol/L (3.5-5.1); Sodium 139 mmol/L (136-145); Total Protein 7.3 g/dL (6.4-8.2)
--- NOTE | 2020-03-25 23:39 | DI.VRAD_ITS ---
PROCEDURE INFORMATION: Exam: XR Chest, 2 Views Exam date and time: 03/25/2020 11:30 PM Age: 69 years old Clinical indication: Type not specified; Patient HX: Chest pain tonight and not feeling great TECHNIQUE: Imaging protocol: XR of the chest Views: 2 views. COMPARISON: CR CHEST 2 VIEWS PA,LAT 04/09/2016 9:06 AM FINDINGS: Lungs: Unremarkable. No consolidation. Pleural space: Unremarkable. No pleural effusion. No pneumothorax. Heart/Mediastinum: Unremarkable. No cardiomegaly. Bones/joints: Unremarkable. IMPRESSION: No acute findings. Dictated and Authenticated by: Myron Bolanos MD. Ordering:STEPHANI Gilliland MD
[2020-03-25 23:42] LABS: Troponin I < 0.05 ng/mL (<0.06)
[2020-03-25 23:56] VITALS: BP 122/78; PULSE 73; RESP 16; O2SAT 96
== END 2020-03-26 00:05 | disposition home or self-care (01) ==
PROVIDERS: Emergency Provider Emergency Medicine; PCP Family Medicine
DX: I12.9 Hypertensive chronic kidney disease with stage 1 through stage 4 chronic kidney disease, or unspecified chronic kidney disease (principal); N18.9 Chronic kidney disease, unspecified; I49.3 Ventricular premature depolarization
CPT/HCPCS: 36415; 80053; 93005; 99285; 71046; 83735; 84484; 85025; 93010; 99284

== ENCOUNTER 2020-04-25 02:29 | Outpatient (CLI) | payer MEDICARE, BC, SELFPAY ==
[2020-04-25 08:46] LABS: Anion Gap 8.2 mmol/L (3-11); BUN 37 mg/dL (7-18); CO2 32.8 mmol/L (21.0-32.0); CREATININE 1.74 mg/dL (0.70-1.30); Calcium 10.2 mg/dL (8.5-10.1); Chloride 101 mmol/L (98-107); Estimated GFR 38.98 (mL/min/1.73m2); Glucose 100 mg/dL (74-106); Potassium 3.9 mmol/L (3.5-5.1); Sodium 142 mmol/L (136-145); TSH (W/Ref FT4) 0.91 uIU/mL (0.36-3.74)
== END 2020-04-25 02:49 ==
PROVIDERS: PCP Family Medicine; Visit Provider Family Medicine
DX: R00.2 Palpitations (principal); N18.9 Chronic kidney disease, unspecified
CPT/HCPCS: 36415; 80048; 84443

== ENCOUNTER 2020-09-04 02:54 | Outpatient (CLI) | payer MEDICARE, BC, SELFPAY ==
[2020-09-04 10:17] LABS: Anion Gap 7.7 mmol/L (3-11); BUN 36 mg/dL (7-18); CO2 30.3 mmol/L (21.0-32.0); CREATININE 1.7 mg/dL (0.70-1.30); Calcium 9.4 mg/dL (8.5-10.1); Chloride 101 mmol/L (98-107); Estimated GFR 40.04 (mL/min/1.73m2); Glucose 108 mg/dL (74-106); Potassium 3.8 mmol/L (3.5-5.1); Sodium 139 mmol/L (136-145)
== END 2020-09-04 02:55 | disposition home or self-care (01) ==
LOC: LBO 02:54
PROVIDERS: Student in an Organized Health Care Education/Training Program; PCP Family Medicine; Visit Provider Family Medicine
DX: I10 Essential (primary) hypertension (principal); N18.9 Chronic kidney disease, unspecified; Z86.39 Personal history of other endocrine, nutritional and metabolic disease
CPT/HCPCS: 36415; 80048

== ENCOUNTER 2021-05-13 02:29 | Outpatient (CLI) | payer MEDICARE, BC, SELFPAY ==
[2021-05-13 12:58] LABS: Anion Gap 6.5 mmol/L (3-11); BUN 40 mg/dL (7-18); CO2 32.5 mmol/L (21.0-32.0); CREATININE 1.8 mg/dL (0.70-1.30); Calcium 9.4 mg/dL (8.5-10.1); Chloride 102 mmol/L (98-107); Estimated GFR 37.38 (mL/min/1.73m2); Glucose 97 mg/dL (74-106); Sodium 141 mmol/L (136-145)
[2021-05-14 10:19] LABS: HIV-1/2 Ag & Ab Screen Negative (Negative)
[2021-05-14 12:08] LABS: Hepatitis C Ab w Rflx HCV PCR Negative (Negative)
== END 2021-05-13 02:30 | disposition home or self-care (01) ==
LOC: LBO 02:29
PROVIDERS: PCP Family Medicine; Visit Provider Family Medicine
DX: Z11.4 Encounter for screening for human immunodeficiency virus [HIV]; Z11.59 Encounter for screening for other viral diseases; N18.9 Chronic kidney disease, unspecified
CPT/HCPCS: 36415; 80048; 86803; 87389

== ENCOUNTER → 2021-12-12 08:16 | Outpatient (BNVA) | payer MEDICARE, BC, SELFPAY | PROVIDERS: PCP Family Medicine; Referring Provider Family Medicine; Visit Provider Physical Therapy Assistant | DX: Z80.0 Family history of malignant neoplasm of digestive organs (principal); Z12.11 Encounter for screening for malignant neoplasm of colon ==

== ENCOUNTER 2021-12-19 09:00 | Outpatient (REF) | payer MEDICARE, BC, SELFPAY ==
--- NOTE | 2021-12-19 08:40 | EYE_PTH ---
PATIENT: Talat Gorman LOC: [facility] U#:[id number] AGE/SX: 71/M ROOM: RE12/19/[address]: GILBERTO Edmond : 1950 BED: DIS: 12/19/2021 SPEC #: [id number] RECD: 12/19/21 17:16 STATUS: EMILIA REAissatou #: [id number] ABBI: 12/19/21 08:[address]: Ilya Morley DEPT: Surgical Specimen RECD BY: Diane Phipps ENTERED: 12/19/21 17:20 SP TYPE: Eye OTHR DR: Nathan Iniguez DO Tissues: 1 - EYE ORBIT BIOPSY Procedures: SKIN LEVEL 4 Comments:
== END 2021-12-19 09:01 | disposition home or self-care (01) ==
LOC: LBO 09:00
PROVIDERS: PCP Family Medicine; Visit Provider Physician Assistant
DX: D18.01 Hemangioma of skin and subcutaneous tissue (principal)
CPT/HCPCS: 88305

== ENCOUNTER 2021-12-23 13:51 | Day surgery (SDC) | payer MEDICARE, BC, SELFPAY ==
--- NOTE | 2021-12-22 21:25 | W.COLOREPORT ---
Colonoscopy Report Date of procedure: 12/23/21 Pre-op diagnosis general: father had colorectal cancer in 70s Post-op diagnosis procedure note: other (Moderate diverticula of the sigmoid colon) Surgeon: Leatha Parikh Anesthesia Type: General:No Airway Estimated blood loss (mL): 0 Complications: None Disposition: same day Prep: Miralax/Dulcolax Retraction Time: 7 Procedure Description: After informed consent was obtained the patient was taken to the procedure room and placed in a left decubitous position. Monitors were applied and a time out was done. The patients name, date of , procedure, allergies to medications and metal in their body was reviewed. The patient was then sedated. Once sedated and comfortable a rectal exam was done. External exam was normal. Internal exam revealed a normal sphincter tone and no palpable masses. The scope was then introduced and retrofelexed. Grade I internal hemorrhoids were identified. The scope was then advanced to the cecum w/ difficulty. The TI and appendiceal orifice were identified. The prep was the BPS 3 in the cecum/right colon and transverse colon. BB PS 2 in the rectosigmoid /left colon, for a total of 8.. The scope was then slowly retracted over 7 minutes back into the rectum. There are no polyps or AVMs visualized today. He has moderate sigmoidal diverticula, there is no signs of active bleeding or infection today. The scope was removed and the patient was woken up and taken back to Same day surgery in stable condition. The patient tolerated the procedure well and there were no immediate complications. Follow up: The patient should follow up in 5 years time, if you are still healthy for anesthesia, or unless they develop changes in bowel habits or other new gastrointestinal complaints.
--- NOTE | 2021-12-22 21:26 | PDOC.DSDIS_ITS ---
Discharge Plan Disposition Patient Disposition: HOME Condition: Good Discharge Details Reason For Visit: Colon cancer screening Attending Provider: Leatha Parikh Primary Care Provider: Nathan Iniguez Home Meds and New Rx's Prescriptions: No Action atorvastatin 10 mg tablet 10 mg PO DAILY Qty: 90 3RF bisacodyl [Dulcolax (bisacodyl)] 5 mg tablet,delayed release (DR/EC) 5 mg PO ONCE Qty: 4 0RF Rx Instructions: Take according to provider's instructions for colonoscopy prep. polyethylene glycol 3350 17 gram/dose powder 17 g PO ONCE Qty: 238 0RF Rx Instructions: To be taken as directed by prescriber's office for colonoscopy prep. oxymetazoline [Afrin (oxymetazoline)] 0.05 % spray,non-aerosol 1 spray intranasal ONCE fluticasone propionate [Flonase Allergy Relief] 50 mcg/actuation spray,suspension 1 spray intranasal DAILY Rx Instructions: administer into each nostril diphenhydramine-acetaminophen [Acetaminophen PM] 1 EACH tablet 1 ea PO HS PRN aspirin [Aspir-81] 81 MG tablet,delayed release (DR/EC) 81 mg PO DAILY Qty: 100 Rx Instructions: prevent cardiovascular events triamterene-hydrochlorothiazid 37.5-25 mg tablet 1 tab PO DAILY Qty: 90 3RF Rx Instructions: to lower bp under 140/80 potassium chloride 20 mEq tablet extended release 20 meq PO DAILY Qty: 90 3RF lisinopril 10 mg tablet 10 mg PO DAILY Qty: 90 3RF epinephrine 0.3 mg/0.3 mL auto-injector 0.3 ml SC ONCE PRN (Reason: anaphylaxis) Qty: 2 3RF Rx Instructions: as a single dose; may repeat once Discharge Instructions Additional Instructions: DSU Colonoscopy Post-O p Instructions Instructions for Everyone who is given Anesthesia: For your safety, please do the following for the next twenty-four (24) hours: *Do Not operate a motor vehicle (car, truck, motorcycle, etc.) *Do Not drink alcoholic beverages or use any recreational drugs for the first 24 hours or while taking pain medications. The medications in your body may have a reaction that can be dangerous. *Do Not make any important decisions or sign any important papers. Findings: moderate diverticula Follow up: Repeat colonoscopy in 5 years time if still healthy for anesthesia. 1. No lifting over 20 pounds or strenuous activity for the first 24 hours after your procedure. After 24 hours there are no restrictions on your activity but y ou may feel fatigued for a few days. 2. After you arrive home you may have a light meal and return to your normal diet as you can tolerate it without feeling sick to your stomach. 3. You may have a bloated, gaseous feeling in your belly (abdomen) after a colonoscopy. Passing gas and belching will help. Walking or lying down on your left side with your knees flexed may relieve the discomfort. Call the office at [phone] (Office) or [phone] (Hospital) right away if you notice any of the following: a.Vomiting of blood or ?coffee ground stools?. b.Rectal bleeding 1Tbsp, blood clots or continuous bleeding. c.Severe belly (abdominal) pain. d.A hard distended belly (abdomen) and an inability to pass gas. 4. Please don?t expect to have a normal BM (bowel movement) for 2-3 days after your procedure. 5. If there are questions regarding the findings of your procedure, please contact your doctor 6. If you are unable to contact your doctor with a problem, contact the hospital at [phone]. 7. Continue all your regular medications unless directed otherwise. I understand the above instructions and have no questions. Signature of Patient or Adult Escort Name of Responsible Adult Escort Signature of Nurse Date/Time Activity:: See above Diet:: See above Discharge Orders Discharge Orders: Discharge Order (Routine); Ordered 12/22/21 Ordered By: Letaha Parikh
[2021-12-23 14:08] VITALS: BP 138/100; PULSE 81; RESP 16; TEMP 36.9; O2SAT 94
[2021-12-23] MEDS: Lactated Ringers 1,000 ML 80 ML IV (14:19)
--- NOTE | 2021-12-23 14:20 | W.ANESPRE ---
General Info Date of Service Date Performed: 12/23/21 Height: 5 ft 9.5 in Weight: 88.1 kg Body Mass Index (BMI): 28.3 Surgical Procedure: Operation Date: 12/23/21 13:50 Proposed Procedure Side Surgeon darci Parikh, DO Meds Allergies and Home Medications Allergies Allergy/AdvReac Type Severity Reaction Status Date / Time Bee sting Allergy Unknown Other (See Uncoded 12/23/21 14:17 Comment) Home Medication Medication Instructions Recorded diphenhydramine 25 1 ea PO HS PRN 05/05/16 mg-acetaminophen 500 mg tablet (Acetaminophen PM) aspirin 81 mg tablet,delayed 81 mg PO DAILY #100 tabs 05/31/17 release (Aspir-) triamterene 37.5 1 tab PO DAILY #90 tabs 01/02/21 mg-hydrochlorothiazide 25 mg tablet potassium chloride 20 mEq 20 meq PO DAILY hypokalemia #90 01/23/21 tablet,extended release tabs lisinopril 10 mg tablet 10 mg PO DAILY #90 tabs 03/11/21 epinephrine 0.3 mg/0.3 mL 0.3 ml subcut ONCE PRN anaphylaxis 05/29/21 injection, auto-injector #2 ea fluticasone propionate 50 1 spray intranasal DAILY 11/13/21 mcg/actuation nasal spray,suspension (Flonase Allergy Relief) oxymetazoline 0.05 % nasal spray 1 spray intranasal ONCE 11/13/21 (Afrin (oxymetazoline)) atorvastatin 10 mg tablet 10 mg PO DAILY #90 tabs 11/24/21 bisacodyl 5 mg tablet,delayed 5 mg PO ONCE #4 tabs 12/12/21 release (Dulcolax (bisacodyl)) polyethylene glycol 3350 17 17 g PO ONCE #238 grams 12/12/21 gram/dose oral powder Current Visit Medications: Current Medications Generic Name Dose Route Start Last Admin Trade Name Freq PRN Reason Stop Dose Admin Hyoscyamine Sulfate 0.125 mg 12/22/21 11:30 Hyoscyamine 0.125 Mg Sl/Oral/Chew SL DIRECTED PRN Ringer's Solution 1,000 mls @ 80 mls/hr 12/23/21 06:00 12/23/21 14:19 IV 01/21/22 23:59 80 mls/hr INFUSION GINETTE Administration IV Miscellaneous Supplies 1 each 12/23/21 06:00 Iv Access IV 01/21/22 23:59 DIRECTED GINETTE Ondansetron HCl 4 mg 12/22/21 11:30 Ondansetron 4 Mg/2 Ml Vial IVP Q4H PRN PRN Nausea / Vomiting Sodium Chloride 0 ml 12/23/21 06:00 Normal Saline Flush 10 Ml Syr IV 01/21/22 23:59 PRN PRN Sodium Chloride 0 ml 12/23/21 06:00 Normal Saline 10 Ml Vial IJ 01/21/22 23:59 DIRECTED PRN Sterile Water 0 ml 12/23/21 06:00 Water,Injection,Sterile 10 Ml Vial IJ 01/21/22 23:59 DIRECTED PRN PFSH Active Problems Active Problems: Problem Status Onset Code Neoplasm of unspecified behavior of bone, soft tissue, and skin D49.2 Actinic keratosis L57.0 Family history of GI malignancy 03/11/12 Z80.0 Medical History Medical History Acute gallstone pancreatitis Chronic kidney disease Conductive hearing loss (03/11/12) Deviated nasal septum (03/11/12) Hypercholesteremia Hyperlipidemia (06/11/90) LDL 170 prior to rx; risk 12% 10/2007; goal 130; 2008 simvastatin 10 mg Hypertension (06/11/00) GOAL <140/85 Hypokalemia Joint pain of lower extremity (06/03/12) L KNEE 02/2012 BRIGIDO; QUAD EXERCISE Nodular prostate without urinary obstruction (12/10/04) 12/2004 Overweight (BMI 25.0-29.9) (12/08/13) goal 195 (BMI 28) Seasonal affective disorder Sinusitis Surgical History Surgical History Cholecystectomy (04/01/16) Amol Granados D.O colonoscopy (03/25/16) Tobacco Smoking/Tobacco Use Status: Never Passive smoking exposure: No Second hand exposure: No Alcohol Alcohol Intake: current Alcohol intake frequency: a few times a month Substance Use Substance use: Never Substance use type: does not use Vital Signs and Lab Results Vital Signs Most Recent Vital Signs in EMR: Most Recent Vital Signs Temp Pulse Resp BP Pulse Ox 36.9 C 81 16 138/100 H 94 12/23/21 14:08 12/23/21 14:08 12/23/21 14:08 12/23/21 14:08 12/23/21 14:08 Lab Results Blood Type / Crossmatch: No Data to Display Complete Blood Count: No Data to Display Complete Metabolic Panel: No Data to Display Liver Function Panel: No Data to Display Coagulation Panel: No Data to Display Cardiac Panel: No Data to Display Arterial Blood Gas: No Data to Display Venous Blood Gas: No Data to Display Pancreas Panel: No Data to Display Thyroid Panel: No Data to Display Infectious Disease: No Data to Display Blood Cultures: No Data to Display Toxicology Panel: No Data to Display Anesthesia Assessment and Plan Anesthesia History Personal History: No History of Anesthesia Complications Family History: No Family History of Anesthesia Complications Exercise Tolerance Exercise Tolerance: Metabolic Equivalents>4 Pertinent Negatives Pertinent Negatives: No Symptoms of GERD, No Major Cardiovascular Symptoms or Complaints and No Major Pulmonary Symptoms or Complaints Cardiac & Pulmonary Exam Cardiac Exam: Normal S1/S2 Heart Sounds Pulmonary Exam: Clear Bilateral Breath Sounds Implantable Cardiac Device Does patient have a Pacemaker or an ICD?: No Airway Exam Known Difficult Airway: No Mallampati Class: 1 Mouth Opening: Normal (> 3cm) Thyromental Distance: Greater than 3 cm Neck Range of Motion: Full ROM Neck Circumference: Normal Teeth Condition: Normal Dentition ASA Classification ASA Score: ASA 2 Emergency Case?: No NPO Status NPO Status: NPO Clears >2 hours, Solids >8 hours Anesthesia Plan Resuscitation Status: Full Code Anesthesia Technique: General Anesthesia Airway Planned: Natural Airway Monitors Used: Standard Monitors
[2021-12-23 14:23] VITALS: BMI 28.3
[2021-12-23 15:15] VITALS: BP 113/74; PULSE 67; RESP 16; TEMP 36.6; O2SAT 95
--- NOTE | 2021-12-23 15:27 | W.ANESPOSTOP ---
Postoperative Evaluation Date, Time and Location Date Performed: 12/23/21 Time Performed: 15:27 Patient Location: Day Surgery Unit Vital Signs Most Recent Imported Vital Signs: Most Recent Vital Signs Temp Pulse Resp BP Pulse Ox 36.6 C 67 16 113/74 95 12/23/21 15:15 12/23/21 15:15 12/23/21 15:15 12/23/21 15:15 12/23/21 15:15 Pain Score Most Recent Pain Score: Most Recent Pain Score Pain Level 0 12/23/21 14:08 Assessment Mental Status: Awake (Alert & Oriented to Patient Baseline) Airway and Respiratory Function: Patent airway with normal (patient baseline) respiratory exam Cardiovascular Function: Hemodynamically Stable Hydration Status: Adequately Hydrated Nausea & Vomiting: No Nausea or Vomiting Pain: Pt. Denies Any Pain Peripheral Nerve Block: Patient did not receive a nerve block
[2021-12-23 15:45] VITALS: BP 129/88; PULSE 68; RESP 16; TEMP 36.4; O2SAT 95
== END 2021-12-23 16:15 | disposition home or self-care (01) ==
PROVIDERS: PCP Family Medicine; Visit Provider Surgery
PROC: 0DJD8ZZ Inspection of Lower Intestinal Tract, Via Natural or Artificial Opening Endoscopic (ICD-10-PCS; CPT 45378; principal; 2021-12-23 13:45)
DX: Z12.11 Encounter for screening for malignant neoplasm of colon (principal); Z80.0 Family history of malignant neoplasm of digestive organs; K57.30 Diverticulosis of large intestine without perforation or abscess without bleeding; I12.9 Hypertensive chronic kidney disease with stage 1 through stage 4 chronic kidney disease, or unspecified chronic kidney disease; N18.9 Chronic kidney disease, unspecified; E78.5 Hyperlipidemia, unspecified
CPT/HCPCS: G0105

== ENCOUNTER 2022-04-14 15:19 | Outpatient (CLI) | payer MEDICARE, BC, SELFPAY ==
[2022-04-14 15:39] LABS: Anion Gap 8.5 mmol/L (3-11); BUN 32 mg/dL (7-18); CO2 31.5 mmol/L (21.0-32.0); CREATININE 1.7 mg/dL (0.70-1.30); Calcium 9.7 mg/dL (8.5-10.1); Chloride 102 mmol/L (98-107); Glucose 77 mg/dL (74-106); Sodium 142 mmol/L (136-145)
== END 2022-04-14 15:20 | disposition home or self-care (01) ==
LOC: LBO 15:34
PROVIDERS: PCP Family Medicine; Visit Provider Family Medicine
DX: N18.9 Chronic kidney disease, unspecified (principal)
CPT/HCPCS: 36415; 80048

== ENCOUNTER 2022-11-18 12:02 | Outpatient (REF) | payer MEDICARE, BC, SELFPAY ==
[2022-11-18 14:37] LABS: Anion Gap 5.7 mmol/L (3-11); BUN 25 mg/dL (7-18); CO2 31.3 mmol/L (21.0-32.0); CREATININE 1.6 mg/dL (0.70-1.30); Calcium 10.2 mg/dL (8.5-10.1); Chloride 102 mmol/L (98-107); Glucose 99 mg/dL (74-106); Potassium 4.1 mmol/L (3.5-5.1); Sodium 139 mmol/L (136-145)
== END 2022-11-18 12:03 | disposition home or self-care (01) ==
LOC: LBN 12:02
PROVIDERS: PCP Family Medicine; Visit Provider Physician Assistant Medical
DX: R00.1 Bradycardia, unspecified (principal)
CPT/HCPCS: 80048

== ENCOUNTER 2022-11-22 11:25 | Emergency (ER) | payer MEDICARE, BC, SELFPAY ==
[2022-11-22] VITALS (70 sets, daily range): BP systolic 51–164; BP diastolic 24–110; PULSE 40–82; RESP 10–26; TEMP 36.2; O2SAT 94–98
--- NOTE | 2022-11-22 11:15 | RT.EKG_ITS ---
APPROVED REPORT Exam: Resting ECG Reason for Exam: heart palpitations Patient Location: E HR:44 bpm ECG Measurements Heart Rate 44 AXIS WI 175 P 33 QRSd 86 QRS -15 QT 428 T 52 QTc 365 Conclusion Sinus bradycardia...rate< [address] depression, anterolateral leads...ST <-0.07mV, I aVL V2-V6 Narrow complex sinus bradycardia rate of 44. ST segment depressions V2 through V5. No ST segment el evations. Compared to prior dated ST segment depression as it is sinus bradycardia. Mild ST segment elevation in aVR appears similar.
--- NOTE | 2022-11-22 12:03 | W.ED.GENAD ---
Discharge Plan Discharge Details Chief Complaint: Palpitatns Clinical Impression: Sinus bradycardia Primary Care Provider: Nathan Iniguez ED Provider: Tavares Rain Home Meds and New Rx's Prescriptions: No Action atorvastatin 10 mg tablet 10 mg PO DAILY Qty: 90 3RF fluticasone propionate [Flonase Allergy Relief] 50 mcg/actuation spray,suspension 1 spray intranasal DAILY Rx Instructions: administer into each nostril diphenhydramine-acetaminophen [Acetaminophen PM] 1 EACH tablet 1 ea PO HS PRN aspirin [Aspir-81] 81 MG tablet,delayed release (DR/EC) 81 mg PO DAILY Qty: 100 Rx Instructions: prevent cardiovascular events epinephrine 0.3 mg/0.3 mL auto-injector 0.3 ml SC ONCE PRN (Reason: anaphylaxis) Qty: 2 3RF Rx Instructions: as a single dose; may repeat once triamterene-hydrochlorothiazid 37.5-25 mg tablet 1 tab PO DAILY Qty: 90 3RF Rx Instructions: to lower bp under 140/80 lisinopril 10 mg tablet 10 mg PO DAILY Qty: 90 3RF potassium chloride 20 mEq tablet extended release 20 meq PO DAILY Qty: 90 3RF Medical Decision Making This is an overall well-appearing afebrile and not tachycardic 72-year-old male with hsypertension and hyperlipidemia now in the emergency department in the setting of chest pain concerning for the possibility of ACS based on diffuse ST segment depressions in the left chest wall leads. Will treat with 324 mg of aspirin and obtain troponins. Patient has not been vomiting to suggest increased risk for esophageal rupture. No positional component nor recent fever no URI symptoms to suggest pericarditis. No tachycardia nor hypotension nor she had dialysis patient so my suspicion is low for tamponade. No tearing component to pain to suggest aortic dissection. No recent cough nor shortness of breath to suggest. No shortness of breath nor calf pain to suggest PE however will check a D-dimer as patient has been recently traveling. No rash to chest to suggest zoster. Equal breath sounds so I am not concerned for pneumothorax. Patient is not beta blocked but is significantly bradycardic. He has not had any veronica syncope but I do feel that outpatient Holter monitor is certainly well oriented. No recent tick bites to suggest Lyme carditis nor CA elongation. 1:30 PM Comprehensive metabolic panel with CKD but no PRIYA. Mild hyperbilirubinemia similar to prior. No acute electrolyte abnormalities. Normal magnesium. CBC lacks anemia and thrombocytopenia and leukocytosis. Troponin elevated at 73 ng/L consistent with unstable angina given chest pain at rest. Will initiate heparinization and reach out to [facility] patient will likely benefit from left heart catheterization. Negative D-dimer. No pain at the moment so we will defer nitroglycerin. - Risk Factors: HTN & HLD. 225pm I spoke to Dr. Winters from cards at [facility]. She advised clopidogrel [address] Roberts accepting. 7:15 PM Patient remained in the ED during the remainder of my shift as transportation was not yet available. I signed transfer paperwork. The patient remains in the ED at the time of signout we will sign patient out to oncoming overnight provider. Repeat troponin stable compared to prior. Based on delay in transfer we will treat with high intensity statin using atorvastatin at 80 mg. Chronic conditions affecting the care of the patient: CKD hypertension hyperlipidemia History obtained from an outside historian: N/A External record review: [employer] EMR with ED visit in [place] last year Diagnostic interpretations performed by me: [Per my independent interpretation chest x-ray shows:] No acute cardiopulmonary process on two-view chest. [Per my independent interpretation EKG shows:] Narrow complex sinus bradycardia rate of 44. ST segment depressions V2 through V5. No ST segment elevations. Compared to prior dated ST segment depression as it is sinus bradycardia. Mild ST segment elevation in aVR appears similar. Medications: N/A Social determinants of health affecting disposition: N/A Management discussed with: [facility] cardiology Treatment/interventions considered: Local hospitalization versus tertiary care transfer. Response to therapies provided: No recurrent pain in the ED. HPI General Date/Time Provider Initiated Documentation: 11/22/22 12:03. HPI Narrative: This is a 72-year-old male with a history of hypertension and hyperlipidemia in the emergency department in setting of palpitations and dizziness. Patient returned from [place] earlier this month. He was out playing golf today and when he noted a pressure in the left side of his chest. It did not radiate. It is not positional nor pleuritic. He denies any specific exacerbators & alleviators. It was not associate with any diaphoresis. He also notes that over the past several weeks he has had erratic blood pressures ranging systolically from the 119 up into the 160s. He denies history of diabetes and family history of premature coronary artery disease. He denies routine tobacco, ethanol, and illicits. He has never had a PE nor DVT. He denies any cough and shortness of breath. He has not taken any recent falls. Related Data Home Medications Medication Instructions Recorded Confirmed diphenhydramine 25 1 ea PO HS PRN 05/05/16 11/22/22 mg-acetaminophen 500 mg tablet (Acetaminophen PM) aspirin 81 mg tablet,delayed 81 mg PO DAILY #100 tabs 05/31/17 11/22/22 release (Aspir-) epinephrine 0.3 mg/0.3 mL 0.3 ml subcut ONCE PRN anaphylaxis 05/29/21 11/22/22 injection, auto-injector #2 ea fluticasone propionate 50 1 spray intranasal DAILY 11/13/21 11/22/22 mcg/actuation nasal spray,suspension (Flonase Allergy Relief) atorvastatin 10 mg tablet 10 mg PO DAILY #90 tabs 11/24/21 11/22/22 triamterene 37.5 1 tab PO DAILY #90 tabs 01/22/22 11/22/22 mg-hydrochlorothiazide 25 mg tablet lisinopril 10 mg tablet 10 mg PO DAILY #90 tabs 03/17/22 11/22/22 potassium chloride 20 mEq 20 meq PO DAILY hypokalemia #90 11/16/22 11/22/22 tablet,extended release tabs Previous Rx's Medication Instructions Recorded epinephrine 0.3 mg/0.3 mL 0.3 ml subcut ONCE PRN anaphylaxis 05/29/21 injection, auto-injector #2 ea atorvastatin 10 mg tablet 10 mg PO DAILY #90 tabs 11/24/21 triamterene 37.5 1 tab PO DAILY #90 tabs 01/22/22 mg-hydrochlorothiazide 25 mg tablet lisinopril 10 mg tablet 10 mg PO DAILY #90 tabs 03/17/22 potassium chloride 20 mEq 20 meq PO DAILY hypokalemia #90 11/16/22 tablet,extended release tabs Allergies Allergy/AdvReac Type Severity Reaction Status Date / Time Bee sting Allergy Unknown Other (See Uncoded 03/27/22 09:56 Comment) General Stated Complaint: Palpitatns TODD: 2 PFSH All Active Problems (Updated 11/22/22 @ 12:40 by Tavares Rain MD) Sinus bradycardia (Acute) Neoplasm of unspecified behavior of bone, soft tissue, 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) Actinic keratosis (Acute) Family history of GI malignancy (Acute 03/11/12) father had colon ca; so Q5 yr colonoscopy; hyperplastic polyps only so far Medical History Acute gallstone pancreatitis Chronic kidney disease Conductive hearing loss (03/11/12) Deviated nasal septum (03/11/12) Hypercholesteremia Hyperlipidemia (06/11/90) LDL 170 prior to rx; risk 12% 10/2007; goal 130; 2008 simvastatin 10 mg Hypertension (06/11/00) GOAL <140/85 Hypokalemia Joint pain of lower extremity (06/03/12) L KNEE 02/2012 BRIGIDO; QUAD EXERCISE Nodular prostate without urinary obstruction (12/10/04) 12/2004 Overweight (BMI 25.0-29.9) (12/08/13) goal 195 (BMI 28) Seasonal affective disorder Sinusitis Surgical History Cholecystectomy (04/01/16) Amol Granados D.O colonoscopy (03/25/16) Family History Mother Essential hypertension Stroke Father Colon cancer Sister Age: 69 No problems noted. Social History (Updated 03/27/22 @ 11:01 by Mar Ahmadi) Smoking/Tobacco Use Status: Never Second Hand Exposure: No Smoking risk assessment performed?: Yes Alcohol Intake: current Alcohol Intake frequency: a few times a month Drug use: Never Substance use type: does not use Adopted: No Caregiver/Support person: No Household members: none Housing: house Number of Children: 2 number of grandchildren: 3 Communication Needs: None Education Level: college Details: Associate's Degree Do you need help understanding health information?: Rarely current occupation: retired Pets and animals: No Sexually active: No Current gender identity: male What is your relationship status?: How often do you talk on the phone with friends or family?: three or more times per week How often do you get together with friends or relatives?: twice per week Do you belong to any clubs or organized social groups?: yes Panel score (0-1 are the most socially isolated patients): 2 What type of physical activity do you participate in: walking and other Details: golfing 3-4 times a week Duration: > 90 minutes/day Frequency: 3-4 times per week Special raysa needs: No Seatbelt use: always Helmet use: No (Declined to answer) 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 Head: Normocephalic, atraumatic. Eye: Pupils equal, round reactive to light. Extraocular eye movements intact. No conjunctival injection. No scleral icterus. Ear, nose, mouth, throat: Grossly normal inspection. Normal voice, handling secretions normally. Neck: Trachea midline. Cardiovascular: Well-perfused distal extremities. Regular slow rhythm. No murmurs. Respiratory: Nonlabored respiration. Clear lungs bilaterally. Gastrointestinal: Nondistended abdomen. Musculoskeletal: No edema. Moving all 4 extremities spontaneously. Skin: Normal for age and race, grossly normal temperature and turgor. No acute rash. Neurologic: Alert and appropriate, no apparent acute deficits. Psychiatric: Mood and manner are appropriate. Grooming and personal hygiene are appropriate. Course Vital Signs Vital signs: Vital Signs Temperature 36.2 C L 11/22/22 11:28 Pulse 49 L 11/22/22 11:28 Respiratory Rate 12 11/22/22 11:28 Blood Pressure 164/71 H 11/22/22 11:28 Pulse Oximetry 96 11/22/22 11:28 Temperature 36.2 C L 11/22/22 11:28 Temperature Source Tympanic 11/22/22 11:28 Pulse 49 L 11/22/22 11:28 Respiratory Rate 12 11/22/22 11:28 Blood Pressure 164/71 H 11/22/22 11:28 Pulse Oximetry 96 11/22/22 11:28 Oxygen Delivery Method Room Air 11/22/22 11:28 Oxygen Flow Rate 0 11/22/22 11:28 Pain Level 0 11/22/22 11:28
--- NOTE | 2022-11-22 12:15 | DI.RAD_ITS ---
Exam(s) XR CHEST 2V PA LATERAL EXAM: XR CHEST 2V PA LATERAL CLINICAL HISTORY: Chest pain TECHNIQUE: 2D digital imaging was performed. COMPARISON: CR,XR XR CHEST 2V PA LATERAL from 03/25/2020 FINDINGS: HEART: Normal size. Aorta: Not dilated. PULMONARY VASCULATURE: Normal. LUNGS: Clear. PLEURAL SPACE: No pleural effusion or pneumothorax. BONE:Unremarkable for age. IMPRESSION: No acute abnormality. DATA REPOSITORY: RADIATION DOSE DELIVERED:
[2022-11-22] MEDS: Aspirin E.C. 325 MG TABEC PO (12:45)
[2022-11-22 13:05] LABS: Abs Immature Grans 0.02 10^3/uL (0.0-0.06); Absolute Basophil Count 0.08 10^3/uL (0.0-0.2); Absolute Eosinophil Count 0.13 10^3/uL (0.0-0.7); Absolute Lymphocyte Count 2.69 10^3/uL (1.2-3.4); Absolute Monocyte Count 0.73 10^3/uL (0.1-0.8); Absolute Neutrophil Count 5.25 10^3/uL (1.2-6.7); Basophils % 0.9; Eosinophils % 1.5; HCT 44.8 % (40.0-50.0); HGB 15.3 g/dL (13.5-17.5); Immature Grans % 0.2; Lymphocytes % 30.2; MCH 31.6 pg (27.0-33.0); MCHC 34.2 % (32.0-36.0); MCV 93 fL (80-95); MPV 10.2 fL (8.0-11.0); Monocytes % 8.2; Platelet Count 243 10^3/uL (130-400); RBC 4.84 10^6/uL (4.36-5.78); RDW 11.7 % (11.8-14.1); RDW-SD 40.3 fL
[2022-11-22 13:26] LABS: ALT 27 U/L (16-63); AST 21 U/L (15-37); Alkaline Phosphatase 71 U/L (46-116); Anion Gap 9.4 mmol/L (3-11); BUN 33 mg/dL (7-18); Bilirubin, Total 1.2 mg/dL (0.2-1.0); CO2 28.6 mmol/L (21.0-32.0); CREATININE 1.7 mg/dL (0.70-1.30); Calcium 9.6 mg/dL (8.5-10.1); Chloride 101 mmol/L (98-107); Glucose 94 mg/dL (74-106); Magnesium 1.8 mg/dL (1.8-2.4); Potassium 3.7 mmol/L (3.5-5.1); Sodium 139 mmol/L (136-145); Total Protein 7.4 g/dL (6.4-8.2)
[2022-11-22 13:29] LABS: Troponin I 73 ng/L (<or=60)
[2022-11-22 13:37] LABS: D-Dimer 294 ng/mlFEU (<500)
--- NOTE | 2022-11-22 14:05 | DI.VRAD_ITS ---
PROCEDURE INFORMATION: Exam: XR Chest Exam date and time: 11/22/2022 1:33 PM Age: 72 years old Clinical indication: Pain; Other: Chest TECHNIQUE: Imaging protocol: Radiologic exam of the chest. Views: 2 views. COMPARISON: CR XR CHEST 2V PA LATERAL 03/25/2020 11:30 PM FINDINGS: Lungs: Unremarkable. No consolidation. Pleural spaces: Unremarkable. No pleural effusion. No pneumothorax. Heart/Mediastinum: Unremarkable. No cardiomegaly. Bones/joints: Unremarkable. IMPRESSION: No acute findings. Dictated and Authenticated by: Fuentes Garcia MD. Ordering:GENARO Chapin MD
[2022-11-22] MEDS: Clopidogrel 300 MG TAB 600 MG PO (14:37)
[2022-11-22 14:55] LABS: PTT Activated 26.3 sec (21.5-31.9)
[2022-11-22 15:42] LABS: Troponin I 71 ng/L (<or=60)
--- NOTE | 2022-11-22 16:55 | NUR.NOTE ---
Nursing Note: able to ambulate to BR without difficulty. VSS.
== END 2022-11-22 19:50 | disposition short-term general hospital (02) ==
PROVIDERS: Emergency Provider Emergency Medicine; PCP Family Medicine
DX: R00.1 Bradycardia, unspecified (principal); R42 Dizziness and giddiness; R00.2 Palpitations; I12.9 Hypertensive chronic kidney disease with stage 1 through stage 4 chronic kidney disease, or unspecified chronic kidney disease; E78.5 Hyperlipidemia, unspecified; E80.6 Other disorders of bilirubin metabolism; R07.9 Chest pain, unspecified; N18.9 Chronic kidney disease, unspecified
CPT/HCPCS: 80053; 93005; 96365; 99285; 71046; 83735; 84484; 85025; 85379; 85730; 93010

== ENCOUNTER 2022-12-02 19:21 | Emergency (ER) | payer MEDICARE, BC, SELFPAY ==
--- NOTE | 2022-12-02 19:15 | RT.EKG_ITS ---
APPROVED REPORT Exam: Resting ECG Reason for Exam: hx heart issues Patient Location: E HR:65 bpm ECG Measurements Heart Rate 65 AXIS LA 177 P 57 QRSd 87 QRS 27 QT 431 T 62 QTc 450 Conclusion Sinus rhythm...normal P axis, V-rate 60- 99 Ventricular bigeminy...bigeminy string>4 w/ V complexes Narrow complex normal sinus rhythm at a rate of 65 with frequent PVCs in the pattern of bigeminy. No ST segment elevations. ST segment flattening V2 and V3. No T wave inversions. Depressions appear more pronounced compared to prior dated earlier this month.
[2022-12-02 19:25] VITALS: BP 149/65; PULSE 40; RESP 16; TEMP 36.8; O2SAT 98
[2022-12-02 20:22] LABS: Abs Immature Grans 0.02 10^3/uL (0.0-0.06); Absolute Basophil Count 0.05 10^3/uL (0.0-0.2); Absolute Monocyte Count 0.61 10^3/uL (0.1-0.8); Absolute Neutrophil Count 4.61 10^3/uL (1.2-6.7); Basophils % 0.6; Eosinophils % 3.5; HCT 44.4 % (40.0-50.0); HGB 14.9 g/dL (13.5-17.5); Immature Grans % 0.2; Lymphocytes % 34.2; MCH 31.1 pg (27.0-33.0); MCHC 33.6 % (32.0-36.0); MCV 93 fL (80-95); MPV 10.9 fL (8.0-11.0); Monocytes % 7.2; Neutrophils % 54.3; Platelet Count 236 10^3/uL (130-400); RBC 4.79 10^6/uL (4.36-5.78); RDW-SD 41.2 fL; WBC 8.49 10^3/uL (4.4-10.8)
[2022-12-02 20:46] LABS: ALT 35 U/L (16-63); AST 34 U/L (15-37); Albumin 3.8 g/dL (3.4-5.0); Alkaline Phosphatase 86 U/L (46-116); BUN 22 mg/dL (7-18); Bilirubin, Total 0.8 mg/dL (0.2-1.0); CREATININE 1.4 mg/dL (0.70-1.30); Calcium 9.1 mg/dL (8.5-10.1); Chloride 105 mmol/L (98-107); Creatine Kinase 253 U/L (39-308); Glucose 111 mg/dL (74-106); Magnesium 1.7 mg/dL (1.8-2.4); Potassium 4.2 mmol/L (3.5-5.1); Sodium 141 mmol/L (136-145); TSH (W/Ref FT4) 1.11 uIU/mL (0.36-3.74); Total Protein 7.2 g/dL (6.4-8.2)
[2022-12-02 20:47] LABS: Troponin I 114 ng/L (<or=60)
--- NOTE | 2022-12-02 21:16 | NUR.NOTE ---
Nursing Note: ekg [place]ed [place] [facility] [place]
[2022-12-02 21:49] LABS: Bilirubin Negative (Negative); Blood Negative (Negative); Clarity Clear (Clear); Glucose Negative (Negative); Ketones Negative (Negative); Leukocyte Esterase Negative (Negative); Nitrite Negative (Negative); Specific Gravity 1.025 (1.005-1.025); Urobilinogen 0.2 mg/dL (Up to 0.2)
[2022-12-02 22:25] VITALS: BP 113/93; PULSE 63; RESP 11; O2SAT 98
[2022-12-02 22:26] VITALS: PULSE 63
[2022-12-02 22:57] LABS: Troponin I 116 ng/L (<or=60)
--- NOTE | 2022-12-02 23:24 | W.ED.GENAD ---
Discharge Plan Disposition Patient Disposition: Home Discharge Details Clinical Impression: Palpitation, Bradycardia Primary Care Provider: Lila Haas ED Provider: Diane Mckeon Home Meds and New Rx's Prescriptions: Continued fluticasone propionate [Flonase Allergy Relief] 50 mcg/actuation spray,suspension 1 spray intranasal DAILY Rx Instructions: administer into each nostril nitroglycerin 0.4 mg tablet, sublingual 0.4 mg sublingual Q5M PRN Rx Instructions: do not exceed 3 doses per episode per [facility] [place]24/22. cc atorvastatin 80 mg tablet 80 mg PO DAILY Rx Instructions: per [facility] [place]/24/22 discharge note cc diphenhydramine-acetaminophen [Tylenol PM Extra Strength] 25-500 mg tablet 1 tab PO QHS aspirin 81 mg tablet,delayed release (DR/EC) 81 mg PO DAILY Qty: 90 0RF Rx Instructions: prevent cardiovascular events lisinopril 10 mg tablet 10 mg PO DAILY Qty: 90 3RF epinephrine 0.3 mg/0.3 mL auto-injector 0.3 ml SC ONCE PRN (Reason: anaphylaxis) Qty: 2 3RF Rx Instructions: as a single dose; may repeat once Discharge Instructions Instructions: Heart Palpitations (ED) Additional Instructions: Please follow-up with [facility] and ask if they are able to see you schedule your MRI earlier Your troponin level was elevated here, we had a long discussion about admission versus discharge and at this time would like to be discharged I do not think this is unreasonable, but we have discussed that should you develop chest pain or any change in your symptoms you should be reevaluated immediately Please follow-up with cardiology at your scheduled appointments and continue taking her prescribed medications Referrals: Lila Haas, DIRECT SALES CONSULTANT [Primary Care Provider] - Medical Decision Making 72-year-old gentleman with complex history presents for palpitations Long review of patient's work-up from [facility] including catheterization without significant coronary artery disease, troponins treadmill test for evaluation of bradycardia, and 2 troponins and EKG with telemetry monitoring and diagnostic labs in the emergency department Troponin initially is elevated, 114, patient has not had a troponin level within normal limits since he was admitted to [facility], it is slightly elevated from his prior, discharge looks like his troponin was 33 Repeat troponin at the 3-hour john was 116, not significantly changed I spoke with [facility] metal pourer, Dr. Jacobson's specifically regarding his diagnosis of micro vascular angina and elevated troponin levels with bradycardia and he does not recommend heparinization or treating this as an NSTEMI at this time Of note, patient does have a history of sinus bradycardia, his cardiac discharge summary from [facility] indicates that his pulse typically ranges from the mid 30s to 50s Patient was ambulated on telemetry monitoring and is asymptomatic with his bradycardia, when reviewing his summary and discharge from [facility] this appears to be his baseline His recommendation is that patient follow-up for his MRI and he feels comfortable that the patient is able to be discharged home at this time We did discuss need to return immediately should he become symptomatic with chest discomfort but he assures me that he has not had any chest pain with any of these episodes He reportedly has an MRI of his heart scheduled on 22 December, I asked cardiology if this is able to be expedited and they recommend the patient calls to reschedule if this is a possibility They do not feel as though the patient needs to be admitted for observation or initiating any additional intervention at this time They encouraged patient should be have return in symptoms to be reassessed We did discuss admission to the hospital for trending of troponins and continued observation, patient states that he prefers to be discharged home, he feels comfortable with discharge plan and will return immediately should he develop chest discomfort or any change in his symptoms At reassessment his vitals are stable he is alert, oriented, and competent to make this decision HPI General Date/Time Provider Initiated Documentation: 12/02/22 19:36. HPI Narrative: This 72-year-old gentleman with a recent reported non-ST elevation HI was subsequently transferred to [facility] and diagnosed with microvascular angina, bradycardia, and scheduled for outpatient MRI and possible pacemaker presents with report of palpitations in the absence of chest pain or any other symptoms today. He states that he is actually felt quite well since he was discharged from [facility] and today was the first day he relaxed and did not do any work at home and is wondering if he is more focused on his symptoms. He denies any chest pain or shortness of breath, he denies any exertional symptoms. He states that he was nauseous when he experienced the palpitations should been intermittent throughout the day. He denies any calf pain or swelling, history of coagulopathy, recent flights, surgeries aside from his catheterization on the , or any additional complaints at this time. He states that the catheterization was performed on the and without significant acute abnormality. Related Data Home Medications Medication Instructions Recorded Confirmed epinephrine 0.3 mg/0.3 mL 0.3 ml subcut ONCE PRN anaphylaxis 05/29/21 11/22/22 injection, auto-injector #2 ea fluticasone propionate 50 1 spray intranasal DAILY 11/13/21 11/22/22 mcg/actuation nasal spray,suspension (Flonase Allergy Relief) aspirin 81 mg tablet,delayed 81 mg PO DAILY #90 tabs 11/30/22 11/30/22 release atorvastatin 80 mg tablet 80 mg PO DAILY 11/30/22 diphenhydramine 25 1 tab PO QHS 11/30/22 mg-acetaminophen 500 mg tablet (Tylenol PM Extra Strength) lisinopril 10 mg tablet 10 mg PO DAILY #90 tabs 11/30/22 11/30/22 nitroglycerin 0.4 mg sublingual 0.4 mg sublingual Q5M PRN 11/30/22 tablet Previous Rx's Medication Instructions Recorded epinephrine 0.3 mg/0.3 mL 0.3 ml subcut ONCE PRN anaphylaxis 05/29/21 injection, auto-injector #2 ea aspirin 81 mg tablet,delayed 81 mg PO DAILY #90 tabs 11/30/22 release lisinopril 10 mg tablet 10 mg PO DAILY #90 tabs 11/30/22 Allergies Allergy/AdvReac Type Severity Reaction Status Date / Time Bee sting Allergy Unknown Other (See Uncoded 11/30/22 08:04 Comment) General Stated Complaint: Chest Pain TODD: 3 PFSH All Active Problems (Updated 12/02/22 @ 23:17 by GILBERTO English) Palpitation (Acute) Bradycardia (Acute) Sinus bradycardia (Acute) Non-ST elevation HI (NSTEMI) (Acute) Neoplasm of unspecified behavior of bone, soft tissue, 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) Actinic keratosis (Acute) Family history of GI malignancy (Acute 03/11/12) father had colon ca; so Q5 yr colonoscopy; hyperplastic polyps only so far Medical History (Updated 12/02/22 @ 23:17 by GILBERTO English) Acute gallstone pancreatitis Chronic kidney disease Conductive hearing loss (03/11/12) Deviated nasal septum (03/11/12) Hypercholesteremia Hyperlipidemia (06/11/90) LDL 170 prior to rx; risk 12% 10/2007; goal 130; 2008 simvastatin 10 mg Hypertension (06/11/00) GOAL <140/85 Hypokalemia Joint pain of lower extremity (06/03/12) L KNEE 02/2012 BRIGIDO; QUAD EXERCISE Nodular prostate without urinary obstruction (12/10/04) 12/2004 Overweight (BMI 25.0-29.9) (12/08/13) goal 195 (BMI 28) Seasonal affective disorder Sinusitis Surgical History (Updated 11/30/22 @ 08:14 by Charlotte Louis RN) Cholecystectomy (04/01/16) Amol Granados D.O colonoscopy (03/25/16) S/P cardiac cath (11/22/22) Family History Mother Essential hypertension Stroke Father Colon cancer Sister Age: 69 No problems noted. Social History (Updated 03/27/22 @ 11:01 by Mar Ahmadi) Smoking/Tobacco Use Status: Never Second Hand Exposure: No Smoking risk assessment performed?: Yes Alcohol Intake: current Alcohol Intake frequency: a few times a month Drug use: Never Substance use type: does not use Adopted: No Caregiver/Support person: No Household members: none Housing: house Number of Children: 2 number of grandchildren: 3 Communication Needs: None Education Level: college Details: Associate's Degree Do you need help understanding health information?: Rarely current occupation: retired Pets and animals: No Sexually active: No Current gender identity: male What is your relationship status?: How often do you talk on the phone with friends or family?: three or more times per week How often do you get together with friends or relatives?: twice per week Do you belong to any clubs or organized social groups?: yes Panel score (0-1 are the most socially isolated patients): 2 What type of physical activity do you participate in: walking and other Details: golfing 3-4 times a week Duration: > 90 minutes/day Frequency: 3-4 times per week Special raysa needs: No Seatbelt use: always Helmet use: No (Declined to answer) 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 Working smoke detector in home: Yes Carbon monox detector in home: Yes Do you feel safe at home: Yes Do you feel safe in your relationship?: Yes Exam Narrative Exam Narrative: Alert and oriented x4, pupils equal round reactive to light and accommodation, lungs clear to auscultation bilaterally, no tachypnea, sinus bradycardia, no murmurs or rubs, no pallor, alert and oriented x4 no peripheral edema Course Vital Signs Vital signs: Vital Signs Temperature 36.8 C 12/02/22 19:25 Pulse 40 L 12/02/22 19:25 Respiratory Rate 16 12/02/22 19:25 Blood Pressure 149/65 H 12/02/22 19:25 Pulse Oximetry 98 12/02/22 19:25 Temperature 36.8 C 12/02/22 19:25 Temperature Source Oral 12/02/22 19:25 Pulse 63 12/02/22 22:26 Respiratory Rate 11 L 12/02/22 22:25 Respiratory Effort Normal 12/02/22 19:33 Respiratory Depth Normal 12/02/22 19:33 Blood Pressure 113/93 H 12/02/22 22:25 Pulse Oximetry 98 12/02/22 22:25 Oxygen Delivery Method Room Air 12/02/22 22:25 Oxygen Flow Rate 0 12/02/22 22:25 Pain Level 0 12/02/22 19:25 Lab/Test Results Lab/Test Results: Laboratory Tests Range/Units 12/02/22 12/02/22 12/02/22 20:10 20:10 21:22 WBC (4.4-10.8) 10^3/uL 8.49 RBC (4.36-5.78) 10^6/uL 4.79 Hgb (13.5-17.5) g/dL 14.9 Hct (40.0-50.0) % 44.4 MCV (80-95) fL 93 MCH (27.0-33.0) pg 31.1 MCHC (32.0-36.0) % 33.6 RDW (11.8-14.1) % 12.0 Plt Count (130-400) 10^3/uL 236 MPV (8.0-11.0) fL 10.9 Immature Gran % 0.2 Neutrophils % 54.3 Lymphocytes % 34.2 Monocytes % 7.2 Eosinophils % 3.5 Basophils % 0.6 Nucleated RBC % (0.0-0.3) % 0.0 Absolute Neutrophils (1.2-6.7) 10^3/uL 4.61 Absolute Lymphocytes (1.2-3.4) 10^3/uL 2.90 Absolute Monocytes (0.1-0.8) 10^3/uL 0.61 Absolute Eosinophils (0.0-0.7) 10^3/uL 0.30 Absolute Basophils (0.0-0.2) 10^3/uL 0.05 Sodium (136-145) mmol/L 141 Potassium (3.5-5.1) mmol/L 4.2 Chloride (98-107) mmol/L 105 Carbon Dioxide (21.0-32.0) mmol/L 27.0 Anion Gap (3-11) mmol/L 9.0 BUN (7-18) mg/dL 22 H Creatinine (0.70-1.30) mg/dL 1.4 H Est GFR (CKD-EPI 2020) (mL/min/1.73m2) 53.40 Glucose (74-106) mg/dL 111 H Calcium (8.5-10.1) mg/dL 9.1 Magnesium (1.8-2.4) mg/dL 1.7 L Total Bilirubin (0.2-1.0) mg/dL 0.8 AST (15-37) U/L 34 ALT (16-63) U/L 35 Alkaline Phosphatase (46-116) U/L 86 Creatine Kinase (39-308) U/L 253 Troponin I (<or=60) ng/L 114 H* Total Protein (6.4-8.2) g/dL 7.2 Albumin (3.4-5.0) g/dL 3.8 TSH (0.36-3.74) uIU/mL 1.11 Urine Color (Yellow) Yellow Urine Clarity (Clear) Clear Urine pH (5-8) 5.0 Ur Specific [place] (1.005-1.025) 1.025 Urine Protein (Negative) mg/dL Negative Urine Ketones (Negative) mg/dL Negative Urine Blood (Negative) Negative Urine Nitrite (Negative) Negative Urine Bilirubin (Negative) Negative Urine Urobilinogen (Up to 0.2) mg/dL 0.2 Ur Leukocyte Esterase (Negative) Negative Urine Glucose (Negative) mg/dL Negative Range/Units 12/02/22 22:20 WBC (4.4-10.8) 10^3/uL RBC (4.36-5.78) 10^6/uL Hgb (13.5-17.5) g/dL Hct (40.0-50.0) % MCV (80-95) fL MCH (27.0-33.0) pg MCHC (32.0-36.0) % RDW (11.8-14.1) % Plt Count (130-400) 10^3/uL MPV (8.0-11.0) fL Immature Gran % Neutrophils % Lymphocytes % Monocytes % Eosinophils % Basophils % Nucleated RBC % (0.0-0.3) % Absolute Neutrophils (1.2-6.7) 10^3/uL Absolute Lymphocytes (1.2-3.4) 10^3/uL Absolute Monocytes (0.1-0.8) 10^3/uL Absolute Eosinophils (0.0-0.7) 10^3/uL Absolute Basophils (0.0-0.2) 10^3/uL Sodium (136-145) mmol/L Potassium (3.5-5.1) mmol/L Chloride (98-107) mmol/L Carbon Dioxide (21.0-32.0) mmol/L Anion Gap (3-11) mmol/L BUN (7-18) mg/dL Creatinine (0.70-1.30) mg/dL Est GFR (CKD-EPI 2020) (mL/min/1.73m2) Glucose (74-106) mg/dL Calcium (8.5-10.1) mg/dL Magnesium (1.8-2.4) mg/dL Total Bilirubin (0.2-1.0) mg/dL AST (15-37) U/L ALT (16-63) U/L Alkaline Phosphatase (46-116) U/L Creatine Kinase (39-308) U/L Troponin I (<or=60) ng/L 116 H* Total Protein (6.4-8.2) g/dL Albumin (3.4-5.0) g/dL TSH (0.36-3.74) uIU/mL Urine Color (Yellow) Urine Clarity (Clear) Urine pH (5-8) Ur Specific [place] (1.005-1.025) Urine Protein (Negative) mg/dL Urine Ketones (Negative) mg/dL Urine Blood (Negative) Urine Nitrite (Negative) Urine Bilirubin (Negative) Urine Urobilinogen (Up to 0.2) mg/dL Ur Leukocyte Esterase (Negative) Urine Glucose (Negative) mg/dL
[2022-12-02 23:52] VITALS: BP 117/96; PULSE 42; RESP 16; O2SAT 99
[2022-12-04 18:45] LABS: Lyme Ab w Rflx to Lyme Confirm Negative (Negative)
[2022-12-07 16:36] LABS: Anaplasma phagocytophilum Negative (Negative); B. miyamotoi PCR Negative (Negative); Babesia divergens/MO-1 Negative (Negative); Babesia duncani Negative (Negative); Babesia microti Negative (Negative); Ehrlichia chaffeensis Negative (Negative); Ehrlichia ewingii/canis Negative (Negative); Ehrlichia muris eauclairensis Negative (Negative)
== END 2022-12-02 23:50 | disposition home or self-care (01) ==
PROVIDERS: Emergency Provider Physician Assistant; PCP Nurse Practitioner Family
DX: R00.2 Palpitations (principal); R00.1 Bradycardia, unspecified; I25.2 Old myocardial infarction
CPT/HCPCS: 36415; 80053; 82550; 87798; 93005; 99283; 81003; 83735; 84443; 84484; 85025; 86618; 93010

== ENCOUNTER 2022-12-15 17:22 | Emergency (ER) | payer MEDICARE, BC, SELFPAY ==
[2022-12-15] VITALS (29 sets, daily range): BP systolic 115–162; BP diastolic 56–99; PULSE 37–97; RESP 11–42; TEMP 36.7–36.8; O2SAT 93–99
--- NOTE | 2022-12-15 17:15 | RT.EKG_ITS ---
APPROVED REPORT Exam: Resting ECG Reason for Exam: chest pain Patient Location: E HR:49 bpm ECG Measurements Heart Rate 49 AXIS OR 192 P 42 QRSd 92 QRS -5 QT 445 T 46 QTc 374 Conclusion Sinus bradycardia...rate< 60 Ventricular premature complex...V complex w/ short R-R interval Low voltage, precordial leads...precordial leads <1.0mV Borderline ST depression, diffuse leads...ST <-0.07mV, ant/lat/inf St depressions are consistent with prior ecgs
--- NOTE | 2022-12-15 17:45 | DI.RAD_ITS ---
Exam(s) XR CHEST 2V PA LATERAL EXAM: XR CHEST 2V PA LATERAL CLINICAL HISTORY: chest pain TECHNIQUE: 2D digital imaging was performed of the chest. Two images were obtained. PA and lateral views were obtained. COMPARISON: CR,XR XR CHEST 2V PA LATERAL from 11/22/2022 FINDINGS: MEDIASTINUM: Normal. HEART: Normal. PULMONARY VASCULATURE: Normal. LUNGS: There is mild interstitial prominence which has a similar appearance compared to the examinati on from 11/22/2022. No new infiltrates are seen. PLEURAL SPACE: No pleural effusion or pneumothorax. BONE:Within normal limits for the patient's age. OTHER FINDINGS:Unchanged elevation of the right hemidiaphragm. IMPRESSION: No definite acute pulmonary process. If symptoms persist, a follow-up examination may be obtained. DATA REPOSITORY: RADIATION DOSE DELIVERED:
--- NOTE | 2022-12-15 17:55 | ED.GENADUL_ITS ---
Discharge Plan Discharge Details Chief Complaint: Nk/Back Pain Primary Care Provider: Lila Haas ED Provider: José Lyons Home Meds and New Rx's Prescriptions: No Action fluticasone propionate [Flonase Allergy Relief] 50 mcg/actuation spray,suspension 1 spray intranasal DAILY Rx Instructions: administer into each nostril nitroglycerin 0.4 mg tablet, sublingual 0.4 mg sublingual Q5M PRN Rx Instructions: do not exceed 3 doses per episode per [facility] discharge 11/24/22. cc atorvastatin 80 mg tablet 80 mg PO DAILY Rx Instructions: per [facility] 11/24/22 discharge note cc diphenhydramine-acetaminophen [Tylenol PM Extra Strength] 25-500 mg tablet 1 tab PO QHS aspirin 81 mg tablet,delayed release (DR/EC) 81 mg PO DAILY Qty: 90 0RF Rx Instructions: prevent cardiovascular events lisinopril 10 mg tablet 10 mg PO DAILY Qty: 90 3RF magnesium oxide 400 mg magnesium capsule 400 mg PO DAILY Qty: 90 0RF Rx Instructions: Administer at least 2 hours apart from other medications epinephrine 0.3 mg/0.3 mL auto-injector 0.3 ml SC ONCE PRN (Reason: anaphylaxis) Qty: 2 3RF Rx Instructions: as a single dose; may repeat once Medical Decision Making 72-year-old male history of recent NSTEMI and is now presenting with left upper back pain. Atypical for ACS. Says it feels different than his symptoms with the NSTEMI. His initial EKG is unremarkable. Has some ST depressions are consistent with his prior EKGs even after the NSTEMI and his most recent ED visit.. No other ischemic changes and unchanged from prior. Will check cardiac enzymes to trend. Will get chest x-ray to evaluate for pneumonia or pneumothorax. We will get broad labs look for electrolyte or metabolic cause of the patient's symptoms. Patient does not think it is a heart attack either but wanted to get checked out. Possible that his troponin still could be elevated given close proximity to his recent NSTEMI. May need to trend them. He understands that he may be here for some time. Will await initial testing and give some IV fluids while waiting as this could represent dehydration. We will continue to monitor. 1940 Chest x-ray unremarkable. Labs mostly unremarkable. His troponin is very mildly increased from his prior visit. He says his symptoms have improved. He would like to go home. I told him that we should repeat this test to make sure is not uptrending. He is agreeable with this plan. If downtrending or equivocal at all will be okay for discharge. Expect that his troponin is elevated from his recent NSTEMI I, José Lyons, have signed out care to the oncoming team pending repeat troponin and disposition.. Medical Records Medical records reviewed: Yes I reviewed the patient's medical records. Imaging Data Radiologic Study: Attestation: I personally reviewed and interpreted this imaging study as follows: Imaging: X-Ray (CHEST) My impression: UNREMARKABLE Radiologist's impression: Suspect multifocal infiltrates and atypical pneumonia. Edema may contribute. Lab Data Lab results reviewed: Yes I reviewed the patient's lab results. ECG Data Attestation: I personally reviewed and interpreted this ECG (s) as follows: Prior ECG tracings: available for review Interpretation: Normal sinus rhythm. Some very mild ST and T wave depressions. HPI General Mode of arrival: ambulatory . Date/Time Provider Initiated Documentation: 12/15/22 17:27 . Limitations to Documentation: no limitations . Information obtained by: patient . HPI Narrative: This is a 72-year-old male history of hypertension hyperlipidemia, CKD, recent NSTEMI at the end of November treated medically at [facility]. Supposed to have follow-up MRI and will have pacemaker placed later in January for bradycardia is now presenting with left upper back pain. He says this feels different than his NSTEMI. He was worried and came here. He is denying any other symptoms. No chest pain or shortness of breath. States he has been pretty anxious since he left the hospital and says that he feels hypervigilant. He was worried and wanted to get checked out. Denies any other complaints. Related Data Home Medications Medication Instructions Recorded Confirmed epinephrine 0.3 mg/0.3 mL 0.3 ml subcut ONCE PRN anaphylaxis 05/29/21 12/11/22 injection, auto-injector #2 ea fluticasone propionate 50 1 spray intranasal DAILY 11/13/21 12/11/22 mcg/actuation nasal spray,suspension (Flonase Allergy Relief) aspirin 81 mg tablet,delayed 81 mg PO DAILY #90 tabs 11/30/22 12/11/22 release atorvastatin 80 mg tablet 80 mg PO DAILY 11/30/22 12/11/22 diphenhydramine 25 1 tab PO QHS 11/30/22 12/11/22 mg-acetaminophen 500 mg tablet (Tylenol PM Extra Strength) lisinopril 10 mg tablet 10 mg PO DAILY #90 tabs 11/30/22 12/11/22 nitroglycerin 0.4 mg sublingual 0.4 mg sublingual Q5M PRN 11/30/22 12/11/22 tablet magnesium oxide 400 mg PO DAILY #90 tab-caps 12/11/22 12/11/22 Previous Rx's Medication Instructions Recorded epinephrine 0.3 mg/0.3 mL 0.3 ml subcut ONCE PRN anaphylaxis 05/29/21 injection, auto-injector #2 ea aspirin 81 mg tablet,delayed 81 mg PO DAILY #90 tabs 11/30/22 release lisinopril 10 mg tablet 10 mg PO DAILY #90 tabs 11/30/22 magnesium oxide 400 mg PO DAILY #90 tab-caps 12/11/22 Allergies Allergy/AdvReac Type Severity Reaction Status Date / Time Bee sting Allergy Unknown Other (See Uncoded 12/15/22 17:26 Comment) General Stated Complaint: Nk/Back Pain TODD: 3 Review of Systems Constitutional Constitutional: Denies chills, Denies fever(s) and Denies headache(s) Eyes Eyes: Denies change in vision ENT Ears, Nose, Mouth, and Throat: Denies headache(s) and Denies odynophagia Cardiovascular Cardiovascular: Denies chest pain and Denies dyspnea Respiratory Respiratory: Denies dyspnea Gastrointestinal Gastrointestinal: Denies abdominal pain, Denies diarrhea, Denies nausea, Denies odynophagia and Denies vomiting Genitourinary Genitourinary: Denies dysuria Musculoskeletal Musculoskeletal: Reports back pain and Denies myalgias Integumentary/Breasts Skin/Breast: Denies changing lesions Neurologic Neurologic: Denies behavioral changes and Denies headache(s) Psychiatric Psychiatric: Denies behavioral changes Endocrine Endocrine: Denies heat intolerance Hematologic/Lymphatic Hematologic/Lymphatic: Denies lymphadenopathy PFSH All Active Problems Overweight (BMI 25.0-29.9) (Acute 12/08/13) goal 195 (BMI 28) Hypomagnesemia (Acute) Hyperlipidemia (Acute 06/11/90) Baseline LDL 170; increased to atorvastatin 80 mg after NSTEMI in 11/2022 Hypertension (Chronic 06/11/00) Chronic kidney disease (Chronic) ASCVD (arteriosclerotic cardiovascular disease) (Acute) Palpitation (Acute) Bradycardia (Acute) Sinus bradycardia (Acute) Non-ST elevation [place] (NSTEMI) (Acute ~11/2022) Medical History Actinic keratosis Acute gallstone pancreatitis Conductive hearing loss (03/11/12) Deviated nasal septum (03/11/12) Joint pain of lower extremity (02/2012) L knee; Dr. 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 Granados Status post colonoscopy Family History Mother Essential hypertension Stroke Father Colon cancer Sister Age: 69 No problems noted. Social History Smoking/Tobacco Use Status: Never Second Hand Exposure: No Smoking risk assessment performed?: Yes Alcohol Intake: current Alcohol Intake frequency: a few times a month Drug use: Never Substance use type: does not use Adopted: No Caregiver/Support person: No Household members: none Housing: house Number of Children: 2 number of grandchildren: 3 Communication Needs: None Education Level: college Details: Associate's Degree Do you need help understanding health information?: Rarely current occupation: retired Pets and animals: No Sexually active: No Current gender identity: male What is your relationship status?: How often do you talk on the phone with friends or family?: three or more times per week How often do you get together with friends or relatives?: twice per week Do you belong to any clubs or organized social groups?: yes Panel score (0-1 are the most socially isolated patients): 2 What type of physical activity do you participate in: walking and other Details: golfing 3-4 times a week Duration: > 90 minutes/day Frequency: 3-4 times per week Special raysa needs: No Seatbelt use: always Helmet use: No (Declined to answer) Drive intox 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 Working smoke detector in home: Yes Carbon monox detector in home: Yes Do you feel safe at home: Yes Do you feel safe in your relationship?: Yes Exam Const General: cooperative Nutritional Appearance: average body habitus Orientation: alert, awake and oriented x3 HENMT Head: normal to inspection Ears: external ears normal Mouth: moist mucous membranes Eyes Pupils: PERRL EOM: EOM intact bilaterally and No nystagmus Neck Neck: full ROM and no tracheal deviation Chest Chest: normal inspection of the chest Resp Auscultation: clear to auscultation bilaterally Cardio Rate: regular rate Rhythm: regular rhythm GI Inspection: normal to inspection Palpation: soft, no guarding, not rigid and nontender Back/Spine/Pelvis Back: No no CVA tenderness Thoracic/Lumbar Spine: thoracic and lumbar spine normal to inspection Skin General skin exam: no rashes or lesions noted Neuro General: patient alert, patient awake and patient oriented x3 Cranial Nerves: CN's II-XI intact bilaterally, PERRL and no nystagmus Cognition: normal cognition Motor: muscle tone normal throughout and strength 5/5 throughout Sensory Exam: no sensory deficits noted Extrem General: normal to inspection Course Vital Signs Vital signs: Vital Signs Temperature 36.7 C 12/15/22 17:24 Pulse 45 L 12/15/22 17:24 Respiratory Rate 18 12/15/22 17:24 Pulse Oximetry 94 12/15/22 17:24 Temperature 36.7 C 12/15/22 17:24 Temperature Source Temporal Artery Scan 12/15/22 17:24 Pulse 45 L 12/15/22 17:24 Respiratory Rate 18 12/15/22 17:24 Respiratory Effort Normal, Non-Labored 12/15/22 17:25 Blood Pressure 162/73 H 12/15/22 17:27 Pulse Oximetry 94 12/15/22 17:24 Oxygen Delivery Method Room Air 12/15/22 17:24 Oxygen Flow Rate 0 12/15/22 17:24
[2022-12-15 18:13] LABS: Abs Immature Grans 0.04 10^3/uL (0.0-0.06); Absolute Basophil Count 0.05 10^3/uL (0.0-0.2); Absolute Eosinophil Count 0.22 10^3/uL (0.0-0.7); Absolute Lymphocyte Count 2.79 10^3/uL (1.2-3.4); Absolute Monocyte Count 0.75 10^3/uL (0.1-0.8); Absolute Neutrophil Count 5.82 10^3/uL (1.2-6.7); Basophils % 0.5; Eosinophils % 2.3; HCT 47.5 % (40.0-50.0); HGB 15.6 g/dL (13.5-17.5); Immature Grans % 0.4; Lymphocytes % 28.9; MCHC 32.8 % (32.0-36.0); MCV 94 fL (80-95); MPV 10.7 fL (8.0-11.0); Monocytes % 7.8; Neutrophils % 60.1; Platelet Count 230 10^3/uL (130-400); RBC 5.04 10^6/uL (4.36-5.78); RDW 12.2 % (11.8-14.1); RDW-SD 42.2 fL; WBC 9.67 10^3/uL (4.4-10.8)
[2022-12-15 18:35] LABS: ALT 37 U/L (16-63); AST 32 U/L (15-37); Albumin 4.3 g/dL (3.4-5.0); Alkaline Phosphatase 83 U/L (46-116); Anion Gap 8.1 mmol/L (3-11); BUN 22 mg/dL (7-18); Bilirubin, Total 1.6 mg/dL (0.2-1.0); CO2 30.9 mmol/L (21.0-32.0); CREATININE 1.4 mg/dL (0.70-1.30); Calcium 9.1 mg/dL (8.5-10.1); Chloride 103 mmol/L (98-107); Glucose 99 mg/dL (74-106); Lipase 38 U/L (16-77); Magnesium 1.9 mg/dL (1.8-2.4); NT-proBNP 293 pg/mL (<300); Potassium 3.6 mmol/L (3.5-5.1); Sodium 142 mmol/L (136-145); Total Protein 7.8 g/dL (6.4-8.2)
[2022-12-15 18:38] LABS: Troponin I 159 ng/L (<or=60)
[2022-12-15] MEDS: Lactated Ringers 1,000 ML 1000 ML IV (18:53)
--- NOTE | 2022-12-15 19:27 | DI.VRAD_ITS ---
PROCEDURE INFORMATION: Exam: XR Chest Exam date and time: 12/15/2022 7:07 PM Age: 72 years old Clinical indication: Chest pressure; Patient HX: Chest pain TECHNIQUE: Imaging protocol: Radiologic exam of the chest. Views: 2 views. COMPARISON: CR XR CHEST 2V PA LATERAL 11/22/2022 1:33 PM FINDINGS: Tubes, catheters and devices: Monitoring wires noted. Lungs: Interstitial prominence and mild patchy airspace opacity noted in both lungs. No dominant consolidation. No vascular congestion. Pleural spaces: Unremarkable. No pleural effusion. No pneumothorax. Heart/Mediastinum: Unremarkable. No cardiomegaly. Diaphragm: Elevated right hemidiaphragm, unchanged. Bones/joints: Unremarkable. IMPRESSION: Suspect multifocal infiltrates and atypical pneumonia. Edema may contribute. Dictated and Authenticated by: Talat Schulte MD. Ordering:ROSEANNE Kumar MD
--- NOTE | 2022-12-15 20:19 | ED.PROG_ITS ---
Date of service: 12/15/22 Time of Service: 22:18 Medical Decision Making Received pt in sign out pending repeat trop. Repeat 160, essentially unchanged from 1st. Re-eval of pt, resting comfortably, states he feels better, wants to go home. Agrees to return for any return of sx's. I told him I will still conta ct [facility] cards and let them know, and he can plan f/u with them as out-pt. 10:16pm Spoke to Dr. Clark for [facility] cardi[facility], discussed all pertinent aspects of case, not a lot to be done at this point, being worked up for a infiltrative process that may be causing his trop leak. Can get a 3rd trop for completeness but pt declined this and went ahead and went home, which is not unreasonable. Sign Out Sign Out Data: Sign Out Comment: sign out pending repeat troponin at 9pm. If down, ok to d.c Last updated by José Lyons MD at 12/15/22 20:00 Discharge Plan Disposition Patient Disposition: Home Discharge Details Clinical Impression: Chest pain Primary Care Provider: Lila Haas ED Provider: Zach Tapia [place] Meds and New Rx's Prescriptions: No Action fluticasone propionate [Flonase Allergy Relief] 50 mcg/actuation spray,suspension 1 spray intranasal DAILY Rx Instructions: administer into each nostril nitroglycerin 0.4 mg tablet, sublingual 0.4 mg sublingual Q5M PRN Rx Instructions: do not exceed 3 doses per episode per [facility] discharge 11/24/22. cc atorvastatin 80 mg tablet 80 mg PO DAILY Rx Instructions: per [facility] 11/24/22 discharge note cc diphenhydramine-acetaminophen [Tylenol PM Extra Strength] 25-500 mg tablet 1 tab PO QHS aspirin 81 mg tablet,delayed release (DR/EC) 81 mg PO DAILY Qty: 90 0RF Rx Instructions: prevent cardiovascular events lisinopril 10 mg tablet 10 mg PO DAILY Qty: 90 3RF magnesium oxide 400 mg magnesium capsule 400 mg PO DAILY Qty: 90 0RF Rx Instructions: Administer at least 2 hours apart from other medications epinephrine 0.3 mg/0.3 mL auto-injector 0.3 ml SC ONCE PRN (Reason: anaphylaxis) Qty: 2 3RF Rx Instructions: as a single dose; may repeat once Discharge Instructions Instructions: Chest Pain (ED)
--- NOTE | 2022-12-15 20:53 | NUR.NOTE ---
Pt ambulated to bathroom with even and steady gait. Denies symptomatic roma s/s.
[2022-12-15 21:29] LABS: Troponin I 160 ng/L (<or=60)
== END 2022-12-15 21:51 | disposition home or self-care (01) ==
PROVIDERS: Student in an Organized Health Care Education/Training Program; Emergency Provider Emergency Medicine; PCP Nurse Practitioner Family
DX: R07.9 Chest pain, unspecified (principal); M54.9 Dorsalgia, unspecified; I21.4 Non-ST elevation (NSTEMI) myocardial infarction; I13.10 Hypertensive heart and chronic kidney disease without heart failure, with stage 1 through stage 4 chronic kidney disease, or unspecified chronic kidney disease; N18.9 Chronic kidney disease, unspecified
CPT/HCPCS: 80053; 83690; 93005; 96360; 99284; 71046; 83735; 83880; 84484; 85025; 85610; 85730; 93010

== ENCOUNTER 2023-02-18 02:45 | Outpatient (CLI) | payer MEDICARE, BC, SELFPAY ==
[2023-02-18 09:41] LABS: ALT 39 U/L (16-63); AST 25 U/L (15-37); Alkaline Phosphatase 79 U/L (46-116); Anion Gap 11.6 mmol/L (3-11); BUN 20 mg/dL (7-18); Bilirubin, Total 1.8 mg/dL (0.2-1.0); CO2 26.4 mmol/L (21.0-32.0); CREATININE 1.3 mg/dL (0.70-1.30); Calcium 9.1 mg/dL (8.5-10.1); Chloride 104 mmol/L (98-107); Estimated GFR 58.37 (mL/min/1.73m2); Glucose 103 mg/dL (74-106); Magnesium 1.8 mg/dL (1.8-2.4); Potassium 3.6 mmol/L (3.5-5.1); Sodium 142 mmol/L (136-145); Total Protein 7.1 g/dL (6.4-8.2)
[2023-02-18 12:51] LABS: Lab Add On Test DONE
[2023-02-18 13:14] LABS: Bilirubin, Direct 0.3 mg/dL (0.0-0.2)
== END 2023-02-18 02:46 | disposition home or self-care (01) ==
PROVIDERS: PCP Nurse Practitioner Family; Visit Provider Nurse Practitioner Family
DX: I10 Essential (primary) hypertension (principal); N18.31 Chronic kidney disease, stage 3a; Z51.81 Encounter for therapeutic drug level monitoring; E83.42 Hypomagnesemia; E80.6 Other disorders of bilirubin metabolism
CPT/HCPCS: 36415; 80053; 82248; 83735

== ENCOUNTER 2023-05-10 08:54 | Emergency (ER) | payer MEDICARE, BC, SELFPAY ==
[2023-05-10] VITALS (39 sets, daily range): BP systolic 124–174; BP diastolic 72–123; PULSE 50–86; RESP 7–22; TEMP 36.4; O2SAT 91–97
--- NOTE | 2023-05-10 08:45 | RT.EKG_ITS ---
APPROVED REPORT Exam: Resting ECG Reason for Exam: Dizzy Patient Location: E HR:68 bpm ECG Measurements Heart Rate 68 AXIS WA 233 P [id number] QRSd 90 QRS -12 QT 392 T 18 QTc 416 Conclusion Atrial-paced complexes...other complexes also detected Prolonged WA interval...WA >220, V-rate 50- 90
[2023-05-10 09:21] LABS: Abs Immature Grans 0.02 10^3/uL (0.0-0.06); Absolute Basophil Count 0.07 10^3/uL (0.0-0.2); Absolute Eosinophil Count 0.32 10^3/uL (0.0-0.7); Absolute Lymphocyte Count 2.44 10^3/uL (1.2-3.4); Absolute Monocyte Count 0.47 10^3/uL (0.1-0.8); Absolute Neutrophil Count 4.11 10^3/uL (1.2-6.7); Basophils % 0.9; Eosinophils % 4.3; HCT 49.2 % (40.0-50.0); HGB 16.5 g/dL (13.5-17.5); Immature Grans % 0.3; Lymphocytes % 32.8; MCH 30.7 pg (27.0-33.0); MCHC 33.5 % (32.0-36.0); MCV 91 fL (80-95); MPV 9.6 fL (8.0-11.0); Monocytes % 6.3; Neutrophils % 55.4; Platelet Count 226 10^3/uL (130-400); RBC 5.38 10^6/uL (4.36-5.78); RDW 12.6 % (11.8-14.1); RDW-SD 42.2 fL; WBC 7.43 10^3/uL (4.4-10.8)
--- NOTE | 2023-05-10 09:21 | ED.GENADUL_ITS ---
Discharge Plan Disposition Patient Disposition: Home Discharge Details Clinical Impression: Symptomatic PVCs, Hypertension, Chronic kidney disease, Lightheadedness Primary Care Provider: Lila Haas ED Provider: Manohar Soriano Home Meds and New Rx's Prescriptions: Continued atorvastatin 80 mg tablet 80 mg PO DAILY lisinopril 40 mg tablet 40 mg PO DAILY Qty: 90 3RF fluticasone propionate [Flonase Allergy Relief] 50 mcg/actuation spray,suspension 1 spray intranasal DAILY Rx Instructions: administer into each nostril nitroglycerin 0.4 mg tablet, sublingual 0.4 mg sublingual Q5M PRN Rx Instructions: do not exceed 3 doses per episode per [facility] [place] 11/24/22. cc diphenhydramine-acetaminophen [Tylenol PM Extra Strength] 25-500 mg tablet 1 tab PO QHS aspirin 81 mg tablet,delayed release (DR/EC) 81 mg PO DAILY Qty: 90 0RF Rx Instructions: prevent cardiovascular events magnesium oxide 400 mg magnesium capsule 400 mg PO DAILY Qty: 90 0RF Rx Instructions: Administer at least 2 hours apart from other medications epinephrine 0.3 mg/0.3 mL auto-injector 0.3 ml SC ONCE PRN (Reason: anaphylaxis) Qty: 2 3RF Rx Instructions: as a single dose; may repeat once metoprolol tartrate 75 mg tablet 75 mg PO BID Rx Instructions: 01/29-per [facility] cardiology increase to 75mg bid lisinopril 20 mg tablet 20 mg PO DAILY Patient Comments: TAKE ONE TABLET BY MOUTH EVERY DAY metoprolol succinate 100 mg tablet extended release 24 hr 100 mg PO BID Patient Comments: TAKE ONE TABLET BY MOUTH TWICE A DAY Discharge Instructions Instructions: Hypertension (ED) Additional Instructions: At this time your work-up was fairly unremarkable. If you develop any new or significant worsening of symptoms which will include chest pain, atypical pain in your shoulder arm or jaw, shortness of breath, or other concerning findings please return immediately to the emergency department for reassessment Otherwise we have placed a referral to your primary care provider for consideration of further outpatient testing which may include a stress test. Continue to take your medications as prescribed and recommended by [facility] ardiology and keep your appointment with them to follow-up on May 26 2023 Referrals: Lila Haas, PANDA [Primary Care Provider] - 2 days Medical Decision Making Patient presenting the emergency department by private vehicle for chief complaint of lightheadedness and palpitations. Patient states this morning while simply sitting and eating his breakfast he started to feel some left lateral chest wall pain and discomfort and then became lightheaded. He checked his blood pressure and noticed it was slightly elevated in the 130s so he took his morning medications. He continued to feel lightheaded especially when he stood up so he called his sister to bring him to the emergency department. Patient states near resolution of his symptoms now but did recently have a pacemaker placed and is awaiting ablation by electrocardio physiology due to an unknown abnormality that he cannot fully explain. Patient has significant past medical history of NSTEMI, bradycardia, pacemaker placement, hyperlipidemia hypertension hypomagnesemia chronic kidney disease. Please see physician interpretation for full interpretation of EKG but upon my review patient is in a atrial paced rhythm with no criteria to meet acute STEMI PVCs are noted otherwise nondiagnostic, physical exam noncontributory. Given some chest discomfort lightheadedness and palpitations we will plan on doing cardiac work- up. Patient is neuro intact with no obvious findings. Pacemaker report received and patient has no events noted and is otherwise noncontributory. Labs reviewed and CBC is noncontributory, CMP is also noncontributory, initial troponin slightly elevated at 153 although the labs again nondiagnostic. Did review patient's past medical history and he has had noted troponin leak in the past and today's numbers are less than they have typically been seen in December. We will plan on checking a 3-hour troponin and discussing case with cardiology. Did reassess patient who stated some improvement of symptoms but that he remained dizzy. He does report a history of M?ni?re's disease but denies any noted symptoms. Due to this we will give a small amount of meclizine to see if this helps pending delta Trop Delta Trop returned and is now 147 which is reassuring and patient reassessed and stated improvement of his dizziness. He did ambulate to the department with again stating slight continued symptoms but significantly improved from this morning. Again we will contact cardiology to discuss possible troponin leak to review case and discuss further follow-up or interventions as recommended. Spoke with Teena Woodard APRN at [facility] with the cardiology department. Discussed patient's case and findings. Her recommendations were to perform 1 more additional Trope 3 hours from the last and if remaining similar then patient is appropriate for discharge to follow-up with primary care for discussion of outpatient stress test that patient should have a low threshold for return for any significant worsening symptoms, shortness of breath or chest pain which at this time he does not have. Discussed this with patient which he is in a greement with plan of care. Repeat troponin was 145 which I feel is equivocal. Patient has no report of new or worsening symptoms so we will discharge patient with close follow-up placed on primary care follow-up list for discussion of outpatient stress test and follow-up with cardiology at [facility]. After discussion of diagnosis and plan of care patient has no further needs, questions, or concerns and states clear understanding to return to the emergency department for any worsening symptoms. This documentation was generated using [employer] system, please disregard any oddities of phrase or misspellings. Lab Data Lab results reviewed: Yes I reviewed the patient's lab results. HPI General Mode of arrival: ambulatory . Date/Time Provider Initiated Documentation: 05/10/23 08:54 . Limitations to Documentation: no limitations . Information obtained by: patient and RN notes reviewed . History of Present Illness 73 year old M presents to the emergency department with the chief complaint of Palpitations and lightheadedness, described as moderate, Patient reports no radiation. Patient started experiencing this hour(s) (1) and it has been intermittent. No relieving factors improve symptom(s), No exacerbating factors reported . Patient notes chest pain. Patient did receive the following treatments prior to arrival, other (Normal prescribed daily medications) Related Data Home Medications Medication Instructions Recorded Confirmed epinephrine 0.3 mg/0.3 mL 0.3 ml subcut ONCE PRN anaphylaxis 05/29/21 05/10/23 injection, auto-injector #2 ea fluticasone propionate 50 1 spray intranasal DAILY 11/13/21 05/10/23 mcg/actuation nasal spray,suspension (Flonase Allergy Relief) aspirin 81 mg tablet,delayed 81 mg PO DAILY #90 tabs 11/30/22 05/10/23 release diphenhydramine 25 1 tab PO QHS 11/30/22 05/10/23 mg-acetaminophen 500 mg tablet (Tylenol PM Extra Strength) nitroglycerin 0.4 mg sublingual 0.4 mg sublingual Q5M PRN 11/30/22 05/10/23 tablet magnesium oxide 400 mg PO DAILY #90 tab-caps 12/11/22 05/10/23 metoprolol tartrate 75 mg tablet 75 mg PO BID 02/10/23 05/10/23 atorvastatin 80 mg tablet 80 mg PO DAILY 03/30/23 05/10/23 lisinopril 40 mg tablet 40 mg PO DAILY #90 tabs 03/30/23 05/10/23 lisinopril 20 mg tablet 20 mg PO DAILY 05/10/23 05/10/23 metoprolol succinate 100 mg 100 mg PO BID 05/10/23 05/10/23 tablet,extended release 24 hr Previous Rx's Medication Instructions Recorded epinephrine 0.3 mg/0.3 mL 0.3 ml subcut ONCE PRN anaphylaxis 05/29/21 injection, auto-injector #2 ea aspirin 81 mg tablet,delayed 81 mg PO DAILY #90 tabs 11/30/22 release magnesium oxide 400 mg PO DAILY #90 tab-caps 12/11/22 lisinopril 40 mg tablet 40 mg PO DAILY #90 tabs 03/30/23 Allergies Allergy/AdvReac Type Severity Reaction Status Date / Time Bee sting Allergy Unknown lips Uncoded 05/10/23 09:05 crystal rosario General Stated Complaint: Dizzy/Sync TODD: 3 Review of Systems Constitutional Constitutional: Denies chills, Denies fever(s) and Denies malaise Cardiovascular Cardiovascular: Reports as per HPI, Reports chest pain, Denies chest pain with activity, Denies syncope, Denies irregular heart rhythm, Reports lightheadedness, Reports palpitations and Denies dyspnea Respiratory Respiratory: Denies cough, Denies hemoptysis and Denies dyspnea Gastrointestinal Gastrointestinal: Denies abdominal pain, Denies nausea and Denies vomiting Neurologic Neurologic: Denies syncope Psychiatric Psychiatric: Denies anxiety Endocrine Endocrine: Denies cold intolerance, Denies heat intolerance and Reports palpitations PFSH All Active Problems (Updated 05/10/23 @ 15:50 by Manohar Soriano NP) Lightheadedness (Acute) Symptomatic PVCs (Acute) Hyperbilirubinemia (Acute) Cardiac pacemaker (Acute) 01/14/23-[employer] Dual pacemaker implanted, [facility]; Iain Salazar MD Overweight (BMI 25.0-29.9) (Acute 12/08/13) goal 195 (BMI 28) Hypomagnesemia (Acute) Hyperlipidemia (Acute 06/11/90) Baseline LDL 170; increased to atorvastatin 80 mg after NSTEMI in 11/2022 Hypertension (Chronic 06/11/00) Chronic kidney disease (Chronic) ASCVD (arteriosclerotic cardiovascular disease) (Acute) Medical History Actinic keratosis Seasonal affective disorder Neoplasm of unspecified behavior of bone, soft tissue, 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 Wheeler; Quad exercise Deviated nasal septum (03/11/12) Conductive hearing loss (03/11/12) Acute gallstone pancreatitis Surgical History Status post colonoscopy Status post cholecystectomy (~04/01/16) Dr. Granados S/P cardiac cath (11/22/22) Family History Mother Essential hypertension Stroke Father Colon cancer Sister Age: 69 No problems noted. Social History Smoking/Tobacco Use Status: Never Second Hand Exposure: No Smoking risk assessment performed?: Yes Alcohol Intake: current Alcohol Intake frequency: a few times a month Drug use: Never Substance use type: does not use Adopted: No Caregiver/Support person: No Household members: none Housing: house Number of Children: 2 number of grandchildren: 3 Communication Needs: None Education Level: college Details: Associate's Degree Do you need help understanding health information?: Rarely current occupation: retired Pets and animals: No Sexually active: No Current gender identity: male What is your relationship status?: How often do you talk on the phone with friends or family?: three or more times per week How often do you get together with friends or relatives?: twice per week Do you belong to any clubs or organized social groups?: yes Panel score (0-1 are the most socially isolated patients): 2 What type of physical activity do you participate in: walking and other Details: golfing 3-4 times a week Duration: > 90 minutes/day Frequency: 3-4 times per week Special raysa needs: No Seatbelt use: always Helmet use: No (Declined to answer) Drive intox or ride w/intox electric pile driver operator: No Working smoke detector in home: Yes Carbon monox detector in home: Yes Do you feel safe at home: Yes Do you feel safe in your relationship?: Yes Exam Const General: cooperative, comfortable, no acute distress, not diaphoretic and not ill appearing Nutritional Appearance: average body habitus Orientation: alert, awake and oriented x3 Limitations: mental status not altered Neck Neck: normal visual inspection, full ROM, trachea midline, supple and no anterior neck swelling Carotids: normal carotid upstroke and no bruits Chest Chest: normal inspection of the chest Resp Effort & Inspection: normal respiratory effort and able to speak in complete sentences Auscultation: clear to auscultation bilaterally Cardio Jugular venous pressure: no JVD Palpation: normal PMI Rate: regular rate Rhythm: regular rhythm Heart Sounds: S1 normal, S2 normal, no click, no gallops, no murmurs and no rubs Bruits: no abdominal aortic bruits and no carotid bruits Pulses: radial pulses present bilaterally 2+ GI Inspection: normal to inspection Palpation: soft, no aortic enlargement, no pulsatile masses and nontender Auscultation: normal bowel sounds Skin General skin exam: no rashes or lesions noted Neuro General: patient alert, patient awake, patient oriented x3, tone normal and moves all extremities Cognition: normal cognition Speech: speech normal Motor: muscle tone normal throughout, no movement abnormalities noted and no fasciculations Coordination: Does not sway with eyes open Course Vital Signs Vital signs: Vital Signs Temperature 36.4 C 05/10/23 08:56 Pulse 74 05/10/23 08:56 Respiratory Rate 18 05/10/23 08:56 Blood Pressure 174/93 H 05/10/23 08:56 Pulse Oximetry 95 05/10/23 08:56 Temperature 36.4 C 05/10/23 08:56 Temperature Source Oral 05/10/23 08:56 Pulse 74 05/10/23 08:56 Pulse 61 05/10/23 09:10 Respiratory Rate 12 05/10/23 09:10 Respiratory Effort Normal 05/10/23 09:03 Respiratory Depth Normal 05/10/23 09:03 Respiratory Pattern Normal 05/10/23 09:03 Blood Pressure 174/93 H 05/10/23 08:56 Blood Pressure Position Sitting 05/10/23 08:56 Pulse Oximetry 97 05/10/23 09:10 Oxygen Delivery Method Room Air 05/10/23 08:56 Oxygen Flow Rate 0 05/10/23 08:56 Pain Level 1 05/10/23 08:56 PAWSS Have you Been Recently Intoxicated or Drunk Within the Last 30 days?: No Have you Ever Experienced Previous Episodes of Alcohol Withdrawal?: No Have you ever Experienced Withdrawal Seizures?: No Have you ever Experienced Delirium Tremens(DT)s?: No Have you ever undergone Alcohol Rehabilitation Treatment (i.e, inpt ot outpatient treatment programs)?: No Have you ever Experienced Blackouts?: No Have you ever Combined Alcohol with other Downers within the last 90 days?: No Have you ever Combined Alcohol with any other Substance of Abuse during the last 90 days?: No Result: 0
[2023-05-10 09:47] LABS: ALT 45 U/L (16-63); AST 27 U/L (15-37); Alkaline Phosphatase 82 U/L (46-116); Anion Gap 7.2 mmol/L (3-11); BUN 20 mg/dL (7-18); Bilirubin, Total 1.4 mg/dL (0.2-1.0); CO2 31.8 mmol/L (21.0-32.0); CREATININE 1.2 mg/dL (0.70-1.30); Calcium 9.4 mg/dL (8.5-10.1); Chloride 104 mmol/L (98-107); Estimated GFR 63.85 (mL/min/1.73m2); Glucose 128 mg/dL (74-106); Magnesium 1.9 mg/dL (1.8-2.4); Potassium 3.5 mmol/L (3.5-5.1); Sodium 143 mmol/L (136-145); Total Protein 7.3 g/dL (6.4-8.2)
[2023-05-10 09:50] LABS: Troponin I 153 ng/L (<or=60)
[2023-05-10 09:59] LABS: D-Dimer 371 ng/mlFEU (<500)
[2023-05-10 10:46] LABS: Bilirubin Negative (Negative); Blood Negative (Negative); Clarity Clear (Clear); Glucose Negative (Negative); Ketones Negative (Negative); Leukocyte Esterase Negative (Negative); Nitrite Negative (Negative); Urobilinogen 0.2 mg/dL (Up to 0.2)
[2023-05-10 10:52] LABS: Bacteria Negative HPF (Negative); C & S Indicated? No; Casts 0-2 Hyaline LPF (Negative); Crystals Negative HPF (Negative); Epithelial Cells Rare HPF (Negative); Mucus Negative (Negative); RBC Negative HPF (0-2); WBC Negative HPF (0-5)
[2023-05-10] MEDS: Meclizine 12.5 MG TAB PO (12:28)
[2023-05-10 12:50] LABS: Troponin I 147 ng/L (<or=60)
[2023-05-10 15:47] LABS: Troponin I 145 ng/L (<or=60)
--- NOTE | 2023-05-10 17:47 | NUR.NOTE ---
Faxed referral to [facility] for a reassessment of Symptomatic PVC's and lightheadedness
== END 2023-05-10 15:58 | disposition home or self-care (01) ==
PROVIDERS: Emergency Provider Nurse Practitioner Family; PCP Nurse Practitioner Family
DX: R07.9 Chest pain, unspecified; I49.3 Ventricular premature depolarization; I12.9 Hypertensive chronic kidney disease with stage 1 through stage 4 chronic kidney disease, or unspecified chronic kidney disease; N18.9 Chronic kidney disease, unspecified; Z95.0 Presence of cardiac pacemaker; E78.5 Hyperlipidemia, unspecified; I25.2 Old myocardial infarction; H81.09 Meniere's disease, unspecified ear
CPT/HCPCS: 36415; 80053; 93005; 99284; 81003; 81015; 83735; 84484; 85025; 85379; 93010; 99285

== ENCOUNTER 2024-02-28 10:36 | Outpatient (CLI) | payer MEDICARE, BC, SELFPAY ==
--- NOTE | 2024-02-28 10:30 | RT.EKG_ITS ---
APPROVED REPORT Exam: Resting ECG Reason for Exam: Chest pain Patient Location: O HR:69 bpm ECG Measurements Heart Rate 69 AXIS MD 213 P [id number] QRSd 97 QRS -20 QT 420 T 31 QTc 450 Conclusion Atrial-paced complexes...other complexes also detected Borderline prolonged MD interval...MD >212, V-rate 50- 90 Borderline left axis deviation...QRS axis (-15,-29) Abnormal R-wave progression, early transition...QRS area>0 in V2
== END 2024-02-28 10:37 | disposition home or self-care (01) ==
LOC: DI.KIM 10:37
PROVIDERS: PCP Nurse Practitioner; Visit Provider Emergency Medicine
DX: Z95.0 Presence of cardiac pacemaker; I25.10 Atherosclerotic heart disease of native coronary artery without angina pectoris
CPT/HCPCS: 93010

== ENCOUNTER 2024-02-28 11:06 | Observation (INO) | payer MEDICARE, BC, SELFPAY ==
[2024-02-28] VITALS (37 sets, daily range): BP systolic 125–177; BP diastolic 64–112; PULSE 59–91; RESP 8–22; TEMP 36.3–37; O2SAT 89–97
--- NOTE | 2024-02-28 11:00 | RT.EKG_ITS ---
APPROVED REPORT Exam: Resting ECG Reason for Exam: chest pain Patient Location: E HR:79 bpm ECG Measurements Heart Rate 79 AXIS ME 286 P [id number] QRSd 91 QRS -15 QT 391 T 23 QTc 449 Conclusion Atrial-paced complexes...other complexes also detected Prolonged ME interval...ME >220, V-rate 50- 90 Low voltage, precordial leads...precordial leads <1.0mV atrial paceed, non ischemic
--- NOTE | 2024-02-28 11:00 | DI.RAD_ITS ---
Exam(s) XR CHEST 2V PA LATERAL EXAM: XR CHEST 2V PA LATERAL CLINICAL HISTORY: chest pain TECHNIQUE: 2D digital imaging was performed. Two views. COMPARISON: CR,XR XR CHEST 2V PA LATERAL from 12/15/2022 FINDINGS: Leads overlie chest. Exam somewhat limited by suboptimal pulmonary inflation. HEART: Normal size. A pacemaker has been placed since the prior exam. Aorta: Not dilated. PULMONARY VASCULATURE: Normal. MEDIASTINUM: Unremarkable. LUNGS: Clear. PLEURAL SPACE: No pleural effusion or pneumothorax. BONE:Unremarkable for age. SOFT TISSUES: Unremarkable. IMPRESSION: No acute abnormality. DATA REPOSITORY: RADIATION DOSE DELIVERED:
[2024-02-28 11:32] LABS: Abs Immature Grans 0.03 10^3/uL (0.0-0.06); Absolute Basophil Count 0.09 10^3/uL (0.0-0.2); Absolute Eosinophil Count 0.39 10^3/uL (0.0-0.7); Absolute Neutrophil Count 4.36 10^3/uL (1.2-6.7); Basophils % 1.2 %; Eosinophils % 5.2 %; HCT 48.4 % (40.0-50.0); HGB 16.3 g/dL (13.5-17.5); Immature Grans % 0.4 %; Lymphocytes % 26.4 %; MCH 32.3 pg (27.0-33.0); MCHC 33.7 % (32.0-36.0); MCV 96 fL (80-95); MPV 9.6 fL (8.0-11.0); Monocytes % 9.2 %; Neutrophils % 57.6 %; Platelet Count 228 10^3/uL (130-400); RBC 5.05 10^6/uL (4.36-5.78); RDW 12.5 % (11.8-14.1); RDW-SD 44.3 fL; WBC 7.57 10^3/uL (4.4-10.8)
[2024-02-28 11:45] LABS: PTT Activated 27.2 sec (23.6-32.8); Prothrombin Time 10.5 sec (9.1-11.1)
--- NOTE | 2024-02-28 11:51 | ED.GENADUL_ITS ---
Discharge Plan Disposition Patient Disposition: Admit to [facility] Condition: Stable Discharge Details Chief Complaint: Chest Pain Clinical Impression: Chest pain, Elevated troponin Primary Care Provider: Stefani King ED Provider: Víctor Springer Home Meds and New Rx's Prescriptions: No Action atorvastatin 80 mg tablet 80 mg PO DAILY lisinopril 40 mg tablet 40 mg PO DAILY Qty: 90 3RF fluticasone propionate [Flonase Allergy Relief] 50 mcg/actuation spray,suspension 1 spray intranasal DAILY Rx Instructions: administer into each nostril nitroglycerin 0.4 mg tablet, sublingual 0.4 mg sublingual Q5M PRN Rx Instructions: do not exceed 3 doses per episode per [facility] [place]24/22. cc diphenhydramine-acetaminophen [Tylenol PM Extra Strength] 25-500 mg tablet 1 tab PO QHS aspirin 81 mg tablet,delayed release (DR/EC) 81 mg PO DAILY Qty: 90 0RF Rx Instructions: prevent cardiovascular events magnesium oxide 400 mg magnesium capsule 400 mg PO DAILY Qty: 90 0RF Rx Instructions: Administer at least 2 hours apart from other medications epinephrine 0.3 mg/0.3 mL auto-injector 0.3 ml SC ONCE PRN (Reason: anaphylaxis) Qty: 2 3RF Rx Instructions: as a single dose; may repeat once amiodarone 200 mg tablet 200 mg PO DAILY Patient Comments: 08/20/[address] Ramirez amlodipine 5 mg tablet 5 mg PO DAILY Patient Comments: 12/20/23 ov with Cardiology metoprolol succinate 100 mg tablet extended release 24 hr 100 mg PO BID Patient Comments: TAKE ONE TABLET BY MOUTH TWICE A DAY HPI General Date/Time Provider Initiated Documentation: 02/28/24 11:08 . HPI Narrative: 73-year-old male history of coronary disease NSTEMI, pacemaker, referred in from [facility] internal for evaluation of brief chest pain earlier this morning around 6 AM, patient felt sharp left-sided chest pain lasting less than a minute worse with deep breath sharp in nature self resolving. No shortness of breath no presyncope no new leg swelling, patient does have baseline bilateral lower extremity edema, currently asymptomatic. Denies chest pain shortness of breath nausea vomiting diaphoresis abdominal pain back pain or other systemic signs of illness Related Data Home Medications ?Medication ?Instructions ?Recorded ?Confirmed epinephrine 0.3 mg/0.3 mL 0.3 ml subcut ONCE PRN anaphylaxis 05/29/21 02/28/24 injection, auto-injector #2 ea fluticasone propionate 50 1 spray intranasal DAILY 11/13/21 02/28/24 mcg/actuation nasal spray,suspension (Flonase Allergy Relief) aspirin 81 mg tablet,delayed 81 mg PO DAILY #90 tabs 11/30/22 02/28/24 release diphenhydramine 25 1 tab PO QHS 11/30/22 02/28/24 mg-acetaminophen 500 mg tablet (Tylenol PM Extra Strength) nitroglycerin 0.4 mg sublingual 0.4 mg sublingual Q5M PRN 11/30/22 02/28/24 tablet magnesium oxide 400 mg PO DAILY #90 tab-caps 12/11/22 02/28/24 atorvastatin 80 mg tablet 80 mg PO DAILY 03/30/23 02/28/24 lisinopril 40 mg tablet 40 mg PO DAILY #90 tabs 03/30/23 02/28/24 metoprolol succinate 100 mg 100 mg PO BID 05/10/23 02/28/24 tablet,extended release 24 hr amiodarone 200 mg tablet 200 mg PO DAILY 08/23/23 02/28/24 amlodipine 5 mg tablet 5 mg PO DAILY 12/21/23 02/28/24 Previous Rx's ?Medication ?Instructions ?Recorded epinephrine 0.3 mg/0.3 mL 0.3 ml subcut ONCE PRN anaphylaxis 05/29/21 injection, auto-injector #2 ea aspirin 81 mg tablet,delayed 81 mg PO DAILY #90 tabs 11/30/22 release magnesium oxide 400 mg PO DAILY #90 tab-caps 12/11/22 lisinopril 40 mg tablet 40 mg PO DAILY #90 tabs 03/30/23 Allergies Allergy/AdvReac Type Severity Reaction Status Date / Time Bee sting Allergy Unknown lips Uncoded 02/28/24 11:16 crystal rosario General Stated Complaint: Chest Pain TODD: 2 Exam Narrative Exam Narrative: Resting comfortably no acute distress Speaking full sentences tolerate secretions No respiratory distress no tachypnea Mild bilateral ankle edema All extremities without deficit Course Vital Signs Vital signs: Vital Signs Temperature 37.0 C 02/28/24 11:10 Pulse 79 02/28/24 11:10 Respiratory Rate 14 02/28/24 11:10 Blood Pressure 137/98 H 02/28/24 11:10 Temperature 37.0 C 02/28/24 11:10 Temperature Source Skin 02/28/24 11:10 Pulse 61 02/28/24 11:31 Pulse 68 02/28/24 11:40 Respiratory Rate 11 L 02/28/24 11:40 Respiratory Effort Normal 02/28/24 11:29 Blood Pressure 152/92 H 02/28/24 11:31 Blood Pressure Mean 112 02/28/24 11:31 Blood Pressure Position Sitting 02/28/24 11:10 Pulse Oximetry 94 02/28/24 11:40 Oxygen Delivery Method Room Air 02/28/24 11:10 Oxygen Flow Rate 0 02/28/24 11:10 Pain Level 0 02/28/24 11:10 Lab/Test Results Lab/Test Results: Laboratory Tests Range/Units 02/28/24 11:30 WBC (4.4-10.8) 10^3/uL 7.57 RBC (4.36-5.78) 10^6/uL 5.05 Hgb (13.5-17.5) g/dL 16.3 Hct (40.0-50.0) % 48.4 MCV (80-95) fL 96 H MCH (27.0-33.0) pg 32.3 MCHC (32.0-36.0) % 33.7 RDW (11.8-14.1) % 12.5 Plt Count (130-400) 10^3/uL 228 MPV (8.0-11.0) fL 9.6 Immature Gran % % 0.4 Neutrophils % % 57.6 Lymphocytes % % 26.4 Monocytes % % 9.2 Eosinophils % % 5.2 Basophils % % 1.2 Nucleated RBC % (0.0-0.3) % 0.0 Absolute Neutrophils (1.2-6.7) 10^3/uL 4.36 Absolute Lymphocytes (1.2-3.4) 10^3/uL 2.00 Absolute Monocytes (0.1-0.8) 10^3/uL 0.70 Absolute Eosinophils (0.0-0.7) 10^3/uL 0.39 Absolute Basophils (0.0-0.2) 10^3/uL 0.09 PT (9.1-11.1) sec 10.5 INR (0.9-1.1) 1.0 APTT (23.6-32.8) sec 27.2 Medical Decision Making 73-year-old male history of coronary disease NSTEMI, pacemaker, referred in from [facility] internal for evaluation of brief chest pain earlier this morning around 6 AM, patient felt sharp left-sided chest pain lasting less than a minute worse with deep breath sharp in nature self resolving. No shortness of breath no presyncope no new leg swelling, patient does have baseline bilateral lower extremity edema, currently asymptomatic. Denies chest pain shortness of breath nausea vomiting diaphoresis abdominal pain back pain or other systemic signs of illness; hemodynamically stable resting comfortably asymptomatic. EKG nonischemic. Patient asymptomatic. Given brief sharp nonradiating symptom atology consider costochondritis versus pleurisy lower suspicion for PE given history and physical must consider atypical ACS lower suspicion for CHF exacerbation, pacer appears to be functioning properly low suspicion for hardware malfunction, lower suspicion for pneumonia or pneumothorax. Given age and history we will obtain screening labs chest x-ray, patient took his daily aspirin earlier today. Disposition pending results 15: 01 patient resting comfortably asymptomatic. Initial troponin greater than 70, now downtrending to 68, EKG paced rhythm nonischemic. Consulting with [facility] cardiology for further treatment and disposition consider observation here at [facility] versus home with close follow-up. Patient recently had echocardiogram at [facility] last week 16: 22 discussed case with patient's [facility] team who is familiar with his clinical course, was seen last week for echo stable EF at 44%, was also evaluated by electrophysiology, patient is on amiodarone for frequent PACs and PVCs also the predominant reason for his pacemaker, is believed that his frequent troponin leaks and cardiomyopathy is related to frequent persistent PACs and PVCs as opposed to true obstructive ischemia, last catheterization was clean no prior stenting. Recommending monitoring here and patient for repeat troponin and echocardiogram. No heparin at this time. Quality:SDOH Health Related Social Needs: No Data to Display PFSH All Active Problems (Updated 02/28/24 @ 16:24 by Víctor Springer MD) Elevated troponin (Acute) Chest pain (Acute) Asymmetrical sensorineural hearing loss (Acute) Actinic Keratosis (Acute) Cerumen impaction (Acute) Tinnitus of both ears (Acute) Hyperbilirubinemia (Acute) Cardiac pacemaker (Acute) 01/14/23-[employer] Dual pacemaker implanted, [facility] Iain Salazar MD Overweight (BMI 25.0-29.9) (Acute 12/08/13) goal 195 (BMI 28) Hypomagnesemia (Acute) Hyperlipidemia (Acute 06/11/90) Baseline LDL 170; increased to atorvastatin 80 mg after NSTEMI in 11/2022 Hypertension (Chronic 06/11/00) Chronic kidney disease (Chronic) ASCVD (arteriosclerotic cardiovascular disease) (Acute) Medical History Actinic keratosis Seasonal affective disorder Neoplasm of unspecified behavior of bone, soft tissue, 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 Wheeler; Quad exercise Deviated nasal septum (03/11/12) Conductive hearing loss (03/11/12) Acute gallstone pancreatitis Surgical History Status post colonoscopy Status post cholecystectomy (~04/01/16) Dr. Granados S/P cardiac cath (11/22/22) Family History Mother Essential hypertension Stroke Father Colon cancer Sister Age: 70 No problems noted. Social History Smoking/Tobacco Use Status: Never Second Hand Exposure: No Smoking risk assessment performed?: Yes Alcohol Intake: current Alcohol Intake frequency: a few times a month Drug use: Never Substance use type: does not use Adopted: No Caregiver/Support person: No Household members: none Housing: house Number of Children: 2 number of grandchildren: 3 Communication Needs: None Education Level: college Details: Associate's Degree Do you need help understanding health information?: Rarely current occupation: retired Pets and animals: No Sexually active: No Current gender identity: male What is your relationship status?: How often do you talk on the phone with friends or family?: three or more times per week How often do you get together with friends or relatives?: twice per week Do you belong to any clubs or organized social groups?: yes Panel score (0-1 are the most socially isolated patients): 2 What type of physical activity do you participate in: walking and other Details: golfing 3-4 times a week Duration: > 90 minutes/day Frequency: 3-4 times per week Special raysa needs: No Seatbelt use: always Helmet use: No (Declined to answer) Drive intox or ride w/intox driver/refuse collector: No Working smoke detector in home: Yes Carbon monox detector in home: Yes Do you feel safe at home: Yes Do you feel safe in your relationship?: Yes
[2024-02-28 11:57] LABS: ALT 41 U/L (16-63); AST 25 U/L (15-37); Albumin 4.3 g/dL (3.4-5.0); Alkaline Phosphatase 101 U/L (46-116); Anion Gap 7.4 mmol/L (3-11); BUN 16 mg/dL (7-18); Bilirubin, Total 1.22 mg/dL (0.2-1.0); CO2 31.6 mmol/L (21.0-32.0); CREATININE 1.3 mg/dL (0.70-1.30); Calcium 9.5 mg/dL (8.5-10.1); Chloride 102 mmol/L (98-107); Estimated GFR 58.01 (mL/min/1.73m2); Glucose 107 mg/dL (74-106); Magnesium 1.9 mg/dL (1.8-2.4); Potassium 3.8 mmol/L (3.5-5.1); Sodium 141 mmol/L (136-145); TSH (W/Ref FT4) 2.98 uIU/mL (0.36-3.74)
[2024-02-28 12:01] LABS: Troponin I 78 ng/L (< or =60)
[2024-02-28] MEDS: Aspirin 81 MG CHEW 243 MG CH (12:09)
[2024-02-28 12:20] LABS: NT-proBNP 119 pg/mL (<300)
[2024-02-28 14:25] LABS: Troponin I 68 ng/L (< or =60)
--- NOTE | 2024-02-28 16:27 | HPE_ITS ---
Date of service: 02/28/24 Time of Service: 16:27 Assessment and Plan Assessment and plan (1) Chest pain: Status: Resolved Assessment and plan: Referred to observation on telemetry troponins already trending downward Has been chest pain-free Was loaded with aspirin in the emergency department continue 81 mg daily Phone consult with cardiology at [facility] by ED provider with no recommendations for heparin at this time Recommended repeat echocardiogram Continue aspirin high-dose statin and beta-yancy (2) Elevated troponin: Status: Resolved Assessment and plan: Peaked at 78 trending downward we will check 1 more level in the a.m. or as needed if he has any breakthrough chest pain Review of previous lab work show chronic troponin elevation In the setting also of chronic kidney disease Echocardiogram from 1 week ago shows EF of 44% repeat echocardiogram pending (3) Cardiac pacemaker: Assessment and plan: Will be monitored on telemetry (4) Hyperlipidemia: Assessment and plan: Continue high-dose statin Qualifiers: Hyperlipidemia type: unspecified Qualified Code(s): E78.5 - Hyperlipidemia, unspecified (5) Hypertension: Assessment and plan: Blood pressures elevated in the emergency department will continue to trend Continue amlodipine lisinopril and metoprolol succinate Qualifiers: Hypertension type: primary hypertension Qualified Code(s): I10 - Essential (primary) hypertension (6) ASCVD (arteriosclerotic cardiovascular disease): Assessment and plan: Followed by [facility] see above (7) Chronic kidney disease: Assessment and plan: Creatinine is stable and at baseline of 1.2-1.4 Avoid nephrotoxic drugs renally dose as needed discussed with DR Contreras Qualifiers: Chronic kidney disease stage: stage 3 (moderate) Chronic kidney disease stage 3 subtype: stage 3a (GFR 45-59) Qualified Code(s): N18.31 - Chronic kidney disease, stage 3a History of Present Illness History of Present Illness Chief Complaint: chest pain Narrative: This is a 73-year-old male patient followed by cardiology at [facility] past medical history significant for non-STEMI, cardiac pacemaker in situ, frequent ectopy, hypertension, dyslipidemia, chronic kidney disease who presented to the emergency department today after experiencing left-sided chest pain. He did report that his pain was reproducible with movement and did not last long but presented to the emergency department. His EKG was nonischemic. His initial troponin was slightly elevated at 78 with higher limit of 60. Repeat troponin is trending down now at 68. Review of previous troponins show chronically elevated troponin. He was given full dose aspirin. His case was discussed with cardiology at [facility] who saw him last week for an echocardiogram. Their recommendations were for observation stay with repeat echo. Hospitalist services contacted for observation admission. 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 Wheeler; Quad exercise Deviated nasal septum (03/11/12) Conductive hearing loss (03/11/12) Acute gallstone pancreatitis Surgical History Status post colonoscopy Status post cholecystectomy (~04/01/16) Dr. Granados S/P cardiac cath (11/22/22) Family History Mother Essential hypertension Stroke Father Colon cancer Sister Age: 70 No problems noted. Social History Smoking/Tobacco Use Status: Never Second Hand Exposure: No Smoking risk assessment performed?: Yes Alcohol Intake: current Alcohol Intake frequency: a few times a month Drug use: Never Substance use type: does not use Adopted: No Caregiver/Support person: No Household members: none Housing: house Number of Children: 2 number of grandchildren: 3 Communication Needs: None Education Level: college Details: Associate's Degree Do you need help understanding health information?: Rarely current occupation: retired Pets and animals: No Sexually active: No Current gender identity: male What is your relationship status?: How often do you talk on the phone with friends or family?: three or more times per week How often do you get together with friends or relatives?: twice per week Do you belong to any clubs or organized social groups?: yes Panel score (0-1 are the most socially isolated patients): 2 What type of physical activity do you participate in: walking and other Details: golfing 3-4 times a week Duration: > 90 minutes/day Frequency: 3-4 times per week Special raysa needs: No Seatbelt use: always Helmet use: No (Declined to answer) Drive intox or ride w/intox driver's education instructor: No Working smoke detector in home: Yes Carbon monox detector in home: Yes Do you feel safe at home: Yes Do you feel safe in your relationship?: Yes Meds Allergies and Home Medications Allergies Allergy/AdvReac Type Severity Reaction Status Date / Time Bee sting Allergy Unknown lips Uncoded 02/28/24 11:16 swell, hives Home Medications ?Medication ?Instructions ?Recorded ?Confirmed ?Type epinephrine 0.3 mg/0.3 mL 0.3 ml subcut ONCE PRN anaphylaxis 05/29/21 02/28/24 Rx injection, auto-injector #2 ea fluticasone propionate 50 1 spray intranasal DAILY 11/13/21 02/28/24 History mcg/actuation nasal spray,suspension (Flonase Allergy Relief) aspirin 81 mg tablet,delayed 81 mg PO DAILY #90 tabs 11/30/22 02/28/24 Rx release diphenhydramine 25 1 tab PO QHS 11/30/22 02/28/24 History mg-acetaminophen 500 mg tablet (Tylenol PM Extra Strength) nitroglycerin 0.4 mg sublingual 0.4 mg sublingual Q5M PRN 11/30/22 02/28/24 History tablet magnesium oxide 400 mg PO DAILY #90 tab-caps 12/11/22 02/28/24 Rx atorvastatin 80 mg tablet 80 mg PO DAILY 03/30/23 02/28/24 History lisinopril 40 mg tablet 40 mg PO DAILY #90 tabs 03/30/23 02/28/24 Rx metoprolol succinate 100 mg 100 mg PO BID 05/10/23 02/28/24 History tablet,extended release 24 hr amiodarone 200 mg tablet 200 mg PO DAILY 08/23/23 02/28/24 History amlodipine 5 mg tablet 5 mg PO DAILY 12/21/23 02/28/24 History Exam Const General: cooperative, healthy appearing, comfortable and no acute distress Nutritional Appearance: overweight Orientation: alert, awake and oriented x3 HENMT Head: normal to inspection, normocephalic and atraumatic Face and sinus: normal facial exam Eyes General: appearance normal, both eyes and all related structures Neck Neck: normal visual inspection, full ROM and no JVD Chest Chest: normal inspection of the chest Resp Effort & Inspection: normal respiratory effort Auscultation: clear to auscultation bilaterally GI Inspection: normal to inspection Palpation: soft Skin General skin exam: no rashes or lesions noted Neuro General: patient alert, patient awake and patient oriented x3 Extrem General: normal to inspection and full ROM Psych Appearance: grossly normal Mental Status: mental status grossly normal Speech and Movement: speech and movement normal Results Labs 02/29/24 06:43 02/29/24 06:43 Labs: Laboratory Results - last 24 hr 02/28/24 02/28/24 11:30 14:00 WBC 7.57 RBC 5.05 Hgb 16.3 Hct 48.4 MCV 96 H MCH 32.3 MCHC 33.7 RDW 12.5 Plt Count 228 MPV 9.6 Immature Gran % 0.4 Neutrophils % 57.6 Lymphocytes % 26.4 Monocytes % 9.2 Eosinophils % 5.2 Basophils % 1.2 Nucleated RBC % 0.0 Absolute Neutrophils 4.36 Absolute Lymphocytes 2.00 Absolute Monocytes 0.70 Absolute Eosinophils 0.39 Absolute Basophils 0.09 PT 10.5 INR 1.0 APTT 27.2 Sodium 141 Potassium 3.8 Chloride 102 Carbon Dioxide 31.6 Anion Gap 7.4 BUN 16 Creatinine 1.3 Est GFR (CKD-EPI 2020) 58.01 Glucose 107 H Calcium 9.5 Magnesium 1.9 Total Bilirubin 1.22 H AST 25 ALT 41 Alkaline Phosphatase 101 Troponin I 78 H* 68 H* NT-Pro-B Natriuret Pep 119 Total Protein 8.0 Albumin 4.3 TSH 2.98 Last Vital Signs Temp 37.0 C 02/28/24 11:10 Pulse 59 L 02/28/24 15:01 Resp 9 L 02/28/24 15:20 BP 171/84 H 02/28/24 15:01 Pulse Ox 93 02/28/24 15:20 Time Spent Time spent with Patient: 55-74 minutes Time was spent: preparing to see the patient(eg.review tests), obtaining and/or reviewing separately otained hiistory, ordering medications,tests, procedures, indepentently interpreting results and counseling the patient
--- NOTE | 2024-02-28 16:45 | RT.EKG_ITS ---
APPROVED REPORT Exam: Resting ECG Reason for Exam: rhythm change Patient Location: E HR:75 bpm ECG Measurements Heart Rate 75 AXIS MA 216 P [id number] QRSd 94 QRS 7 QT 418 T 33 QTc 466 Conclusion Atrial-paced complexes...other complexes also detected Borderline prolonged MA interval...MA >212, V-rate 50- 90 a paced, normal axis, non ischemic
--- NOTE | 2024-02-28 17:04 | W.PC.ACHO ---
Registration Status: Primary Language: Preferred Language: ED Information & Data Chief Complaint Chest Pain 02/28/24 11:54 Triage Note Pt arrives to ED stating he 02/28/24 11:10 woke up this AM and was having CP that lasted about 1 minute. Pain has since subsided. Pt had an EKG at [facility] but recommended pt come to ED to have a cardiac workup. Medical / Surgical History (Last Reviewed 05/10/23 @ 09:24 by Manohar Soriano NP) Actinic keratosis Seasonal affective disorder Neoplasm of unspecified behavior of bone, soft tissue, and skin Nodular prostate without urinary obstruction (12/10/04) Joint pain of lower extremity (02/2012) Deviated nasal septum (03/11/12) Conductive hearing loss (03/11/12) Acute gallstone pancreatitis (Last Reviewed 05/10/23 @ 09:24 by Manohar Soriano NP) Status post colonoscopy Status post cholecystectomy (~04/01/16) S/P cardiac cath (11/22/22) Most Recent Vital Signs Temperature 37.0 C 02/28/24 11:10 Temperature Source Skin 02/28/24 11:10 Pulse 59 L 02/28/24 15:01 Pulse 68 02/28/24 15:20 Respiratory Rate 9 L 02/28/24 15:20 Respiratory Effort Normal 02/28/24 11:29 Blood Pressure 171/84 H 02/28/24 15:01 Blood Pressure Mean 109 02/28/24 15:01 Blood Pressure Position Sitting 02/28/24 11:10 Pulse Oximetry 93 02/28/24 15:20 Oxygen Delivery Method Room Air 02/28/24 11:10 Oxygen Flow Rate 0 02/28/24 11:10 Pain Level 0 02/28/24 11:10 Allergies Bee sting Allergy (Unknown, Uncoded 02/28/24 11:16) lips swell, hives IV IV Catheter Type [Right Saline Lock Antecubital] IV Catheter Gauge [Right 18 Antecubital] Diagnostics 02/28/24 02/28/24 Range/Units 14:00 11:30 WBC 7.57 (4.4-10.8) 10^3/uL RBC 5.05 (4.36-5.78) 10^6/uL Hgb 16.3 (13.5-17.5) g/dL Hct 48.4 (40.0-50.0) % MCV 96 H (80-95) fL MCH 32.3 (27.0-33.0) pg MCHC 33.7 (32.0-36.0) % RDW 12.5 (11.8-14.1) % Plt Count 228 (130-400) 10^3/uL MPV 9.6 (8.0-11.0) fL Immature Gran % 0.4 % Neutrophils % 57.6 % Lymphocytes % 26.4 % Monocytes % 9.2 % Eosinophils % 5.2 % Basophils % 1.2 % Nucleated RBC % 0.0 (0.0-0.3) % Absolute Neutrophils 4.36 (1.2-6.7) 10^3/uL Absolute Lymphocytes 2.00 (1.2-3.4) 10^3/uL Absolute Monocytes 0.70 (0.1-0.8) 10^3/uL Absolute Eosinophils 0.39 (0.0-0.7) 10^3/uL Absolute Basophils 0.09 (0.0-0.2) 10^3/uL PT 10.5 (9.1-11.1) sec INR 1.0 (0.9-1.1) APTT 27.2 (23.6-32.8) sec Sodium 141 (136-145) mmol/L Potassium 3.8 (3.5-5.1) mmol/L Chloride 102 (98-107) mmol/L Carbon Dioxide 31.6 (21.0-32.0) mmol/L Anion Gap 7.4 (3-11) mmol/L BUN 16 (7-18) mg/dL Creatinine 1.3 (0.70-1.30) mg/dL Est GFR (CKD-EPI 2020) 58.01 (mL/min/1.73m2) Glucose 107 H (74-106) mg/dL Calcium 9.5 (8.5-10.1) mg/dL Magnesium 1.9 (1.8-2.4) mg/dL Total Bilirubin 1.22 H (0.2-1.0) mg/dL AST 25 (15-37) U/L ALT 41 (16-63) U/L Alkaline Phosphatase 101 (46-116) U/L Troponin I 68 H* 78 H* (< or =60) ng/L NT-Pro-B Natriuret Pep 119 (<300) pg/mL Total Protein 8.0 (6.4-8.2) g/dL Albumin 4.3 (3.4-5.0) g/dL TSH 2.98 (0.36-3.74) uIU/mL Intake and Output - 24 Hour Total 02/28/24 11:06 thru 02/28/24 11:10 Weight 97.522 kg Falls Risk Assessment History of Falls No History 02/28/24 11:29 Contributing Factors No Factors 02/28/24 11:29 Ambulatory Aids Independent 02/28/24 11:29 Tubes/Lines None 02/28/24 11:29 Gait Evaluation No gait disturbance 02/28/24 11:29 Cognition No cognitive impairment 02/28/24 11:29 Fall Total Score 0 02/28/24 11:29 Level of Risk Standard/Low Risk 02/28/24 11:29 Problems (Last Reviewed 05/10/23 @ 09:24 by Manohar Soriano NP) Elevated troponin (Acute) Chest pain (Acute) Cardiac pacemaker (Acute) Hyperlipidemia (Acute 06/11/90) Hypertension (Chronic 06/11/00) Chronic kidney disease (Chronic) ASCVD (arteriosclerotic cardiovascular disease) (Acute) v v v v v v v v v Sending and/or Receiving Nurses: Please use comment section below to note any information pertinent to the patient hand-off not included above. Information / Comments: Report received from ER Nurse Sandra, Patient is AO x 3. Came in with left sided chest but was resolved while in ER, has pacemaker. All questions answered. Report received from:
[2024-02-28] MEDS: Metoprolol CR 100 MG TABCR PO (20:58)
[2024-02-29 03:25] VITALS: BP 126/84; PULSE 73; RESP 19; TEMP 36.4; O2SAT 91
[2024-02-29 06:58] LABS: Abs Immature Grans 0.02 10^3/uL (0.0-0.06); Absolute Basophil Count 0.06 10^3/uL (0.0-0.2); Absolute Eosinophil Count 0.43 10^3/uL (0.0-0.7); Absolute Monocyte Count 0.66 10^3/uL (0.1-0.8); Absolute Neutrophil Count 4.57 10^3/uL (1.2-6.7); Basophils % 0.8 %; Eosinophils % 5.6 %; HCT 46.6 % (40.0-50.0); HGB 15.8 g/dL (13.5-17.5); Immature Grans % 0.3 %; Lymphocytes % 25.8 %; MCH 32.1 pg (27.0-33.0); MCHC 33.9 % (32.0-36.0); MCV 95 fL (80-95); MPV 9.7 fL (8.0-11.0); Monocytes % 8.5 %; Platelet Count 214 10^3/uL (130-400); RBC 4.92 10^6/uL (4.36-5.78); RDW 12.5 % (11.8-14.1); RDW-SD 43.8 fL; WBC 7.74 10^3/uL (4.4-10.8)
[2024-02-29 07:25] LABS: Anion Gap 8.3 mmol/L (3-11); BUN 17 mg/dL (7-18); CO2 29.7 mmol/L (21.0-32.0); CREATININE 1.3 mg/dL (0.70-1.30); Chloride 103 mmol/L (98-107); Estimated GFR 58.01 (mL/min/1.73m2); Glucose 95 mg/dL (74-106); Potassium 3.3 mmol/L (3.5-5.1); Sodium 141 mmol/L (136-145)
[2024-02-29 07:27] LABS: Troponin I 71 ng/L (< or =60)
[2024-02-29 07:51] VITALS: BP 126/90; PULSE 63; RESP 16; TEMP 36.7; O2SAT 95
[2024-02-29] MEDS: Amiodarone 200 MG TAB PO (09:13)
[2024-02-29] MEDS: Lisinopril 20 MG TAB 40 MG PO (09:13)
[2024-02-29] MEDS: Magnesium Oxide 400 MG TAB PO (09:14)
[2024-02-29] MEDS: Atorvastatin 40 MG TAB 80 MG PO (09:14)
[2024-02-29] MEDS: amLODIPine 5 MG TAB PO (09:14)
[2024-02-29] MEDS: Aspirin E.C. 81 MG TABEC PO (09:14)
[2024-02-29] MEDS: Metoprolol CR 100 MG TABCR PO (09:14)
[2024-02-29] MEDS: Potassium Chloride 20 MEQ TABCR 40 MEQ PO (10:15)
[2024-02-29] MEDS: Acetaminophen 325 MG TAB 650 MG PO (10:15)
--- NOTE | 2024-02-29 10:35 | INITIAL_ITS ---
Date of service: 02/29/24 Time of Service: 10:35 Care Management Initial Assmt Initial Assessment Reason for Hospitalization: Chest Pain Functional Status/Living Situation Town of Residence: [facility] Significant Other/Family: Local Natural Supports: Sister; Silvia. Son: Tani Employment Status: Retired ( ) Instrumental Activities of Daily Living (ADLs): Independent Activities/Hobbies/SocialSupport: Enjoys golfing. Medications Medication Management: No Issues/Barriers identified Advance Directives Advance Directives: Do you have an Advance Directive: N 06/28/13 06:48 AD On File at [facility]: N 06/28/13 06:48 Date Asked 02/28/24 02/28/24 11:24 AD Date Reviewed COLST On File at [facility] No 11/22/22 14:15 COLST Date Scanned Code Status Resuscitation Status Full Code Care Team Visit Care Team Role Provider Type Stefani King NP Primary Care Provider NURSE PRACTITIONER Víctor Springer MD Emergency Provider [facility] STAFF PHYSICIAN Tavares Contreras Admit Provider [facility] STAFF PHYSICIAN Attending Provider Discharge Potential Discharge Needs: Consult Consult Services Needed: Cardiology (Followed by [facility]), Imaging/labs (ECHO) and PCP F/U Appt Patient/Family Education Needs: Review discharge instructions, discuss Ask Me Three Transportation: Private vehicle Plan: Anticipate Talat will return home with close outpatient follow up with [facility] cardiology, PCP and plan of care as prescribed. He will transport via private vehicle with family. PFSH All Active Problems (Updated 02/28/24 @ 17:08 by PETROS GARCIA) Elevated troponin (Acute) Chest pain (Acute) Asymmetrical sensorineural hearing loss (Acute) Actinic Keratosis (Acute) Cerumen impaction (Acute) Tinnitus of both ears (Acute) Hyperbilirubinemia (Acute) Cardiac pacemaker (Acute) 01/14/23-Medtronic Dual pacemaker implanted, [facility]; Iain Salazar MD Overweight (BMI 25.0-29.9) (Acute 12/08/13) goal 195 (BMI 28) Hypomagnesemia (Acute) Hyperlipidemia (Acute 06/11/90) Baseline LDL 170; increased to atorvastatin 80 mg after NSTEMI in 11/2022 Hypertension (Chronic 06/11/00) Chronic kidney disease (Chronic) ASCVD (arteriosclerotic cardiovascular disease) (Acute) Medical History Actinic keratosis Seasonal affective disorder Neoplasm of unspecified behavior of bone, soft tissue, 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 Wheeler; Quad exercise Deviated nasal septum (03/11/12) Conductive hearing loss (03/11/12) Acute gallstone pancreatitis Surgical History Status post colonoscopy Status post cholecystectomy (~04/01/16) Dr. Granados S/P cardiac cath (11/22/22) Family History Mother Essential hypertension Stroke Father Colon cancer Sister Age: 70 No problems noted. Social History Smoking/Tobacco Use Status: Never Second Hand Exposure: No Smoking risk assessment performed?: Yes Alcohol Intake: current Alcohol Intake frequency: a few times a month Drug use: Never Substance use type: does not use Adopted: No Caregiver/Support person: No Household members: none Housing: house Number of Children: 2 number of grandchildren: 3 Communication Needs: None Education Level: college Details: Associate's Degree Do you need help understanding health information?: Rarely current occupation: retired Pets and animals: No Sexually active: No Current gender identity: male What is your relationship status?: How often do you talk on the phone with friends or family?: three or more times per week How often do you get together with friends or relatives?: twice per week Do you belong to any clubs or organized social groups?: yes Panel score (0-1 are the most socially isolated patients): 2 What type of physical activity do you participate in: walking and other Details: golfing 3-4 times a week Duration: > 90 minutes/day Frequency: 3-4 times per week Special raysa needs: No Seatbelt use: always Helmet use: No (Declined to answer) 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 Working smoke detector in home: Yes Carbon monox detector in home: Yes Do you feel safe at home: Yes Do you feel safe in your relationship?: Yes SDOH(Care Management) Screening Will the Patient Participate in the Screening?: Yes Do you worry about having a steady place to live?: no Problems where you live: no known problems In the past 12 months, have you had to go without electric, gas, oil or water in your home?: no Have you or anyone in your house had to go without enough food to eat?: no Has lack of transportation kept you from medical appointments or from doing things needed for daily living?: no Has anyone in your support network made you feel unsafe for any reason?: no
[2024-02-29 11:54] VITALS: BP 150/92; PULSE 71; RESP 18; TEMP 36.2; O2SAT 95
[2024-02-29 13:59] LABS: Troponin I 69 ng/L (< or =60)
--- NOTE | 2024-02-29 14:54 | W.PM.DS.N ---
Date of service: 02/29/24 Time of Service: 14:54 DS: Diagnosis Discharge Diagnosis (1) Chest pain: Status: Acute (2) Elevated troponin: Status: Acute (3) Cardiac pacemaker: Status: Acute (4) Hyperlipidemia: Status: Acute (5) Hypertension: Status: Chronic (6) ASCVD (arteriosclerotic cardiovascular disease): Status: Acute (7) Chronic kidney disease: Status: Chronic Discharge Plan Disposition Patient Disposition: Home Condition: Good Discharge Details Reason For Visit: Chest pain Admit Date/Time: 02/28/24 16:25 Admit Provider: Tavares Contreras Attending Provider: Tavares Contreras Primary Care Provider: Stefani King Hospital Course Hospital Course: This is a 73-year-old male with a history of coronary artery disease, who presented to his PCP office for evaluation of chest pain. His past medical history includes: Coronary Artery Disease: He experienced an occlusive coronary event last spring while in [place] but did not seek care. Upon returning to [place], he felt fatigued and was diagnosed with an NSTEMI. He was transferred to [place], where he was found to have a reduced ejection fraction of 44% and had a dual-chamber pacemaker implanted for bradycardia. Follow-Up: Last week, he had a follow-up echocardiogram at [facility] which again showed an EF of 44%. Current Episode: Patient awoke at 6 AM with left-sided chest pain radiating to his back. The pain was sharp initially but later described as less specific. It worsened with inspiration and lasted for a minute or two. He experienced another bout lasting several minutes with pain radiating to the posterior and axilla. No sweating, but he felt he was not getting adequate breath. Since then, he has felt well with no further chest pain or breathing issues. Given his history of coronary artery disease, while ischemic pain is less likely, further evaluation is warranted. This includes serial troponins and possibly a repeat EKG in several hours.? His PCP sent him to the emergency department. In the ED patient described the chest pain as: Sharp, left-sided, lasting less than a minute, worse with deep breath, self-resolving.? Associated Symptoms: No shortness of breath, presyncope, new leg swelling. Baseline bilateral lower extremity edema present but currently asymptomatic.? Denied: Chest pain, shortness of breath, nausea, vomiting, diaphoresis, abdominal pain, back pain, or other systemic signs of illness. Diagnostic Data: EKG: Nonischemic Initial Troponin Level: 69 (reference range <=0) Repeat Troponin Level: 71 third - 68 The patient's troponin levels are chronically elevated, consistent with previous measurements. Hospital Course and Management: Medication: Administered full dose aspirin Consultations: Cardiology was consulted. The patient had been seen last week for an echocardiogram, and cardiology recommended observation and repeat echocardiogram. The patient had no further chest pain.? He did have a repeat echo which showed left ventricular systolic function mildly reduced.? Left ventricular ejection fraction is 45-50% with inferior regional wall motion abnormality.? The right ventricle is of normal size.? Right ventricular function is probably normal.? Compared to echo performed on 02/23/24 there is no significant change. Discharge Instructions: Follow up with cardiology as recommended next week Continue taking prescribed medications, including aspirin Monitor for any new or worsening symptoms, especially chest pain Contact healthcare provider if symptoms persist or if there are any concerns Home Meds and New Rx's Prescriptions: Continued atorvastatin 80 mg tablet 80 mg PO DAILY lisinopril 40 mg tablet 40 mg PO DAILY Qty: 90 3RF fluticasone propionate [Flonase Allergy Relief] 50 mcg/actuation spray,suspension 1 spray intranasal DAILY Rx Instructions: administer into each nostril nitroglycerin 0.4 mg tablet, sublingual 0.4 mg sublingual Q5M PRN Rx Instructions: do not exceed 3 doses per episode per [facility] discharge 11/24/22. cc diphenhydramine-acetaminophen [Tylenol PM Extra Strength] 25-500 mg tablet 1 tab PO QHS aspirin 81 mg tablet,delayed release (DR/EC) 81 mg PO DAILY Qty: 90 0RF Rx Instructions: prevent cardiovascular events magnesium oxide 400 mg magnesium capsule 400 mg PO DAILY Qty: 90 0RF Rx Instructions: Administer at least 2 hours apart from other medications epinephrine 0.3 mg/0.3 mL auto-injector 0.3 ml SC ONCE PRN (Reason: anaphylaxis) Qty: 2 3RF Rx Instructions: as a single dose; may repeat once amiodarone 200 mg tablet 200 mg PO DAILY Patient Comments: 08/20/[address] Ramirez amlodipine 5 mg tablet 5 mg PO DAILY Patient Comments: 12/20/23 ov with Cardiology metoprolol succinate 100 mg tablet extended release 24 hr 100 mg PO BID Patient Comments: TAKE ONE TABLET BY MOUTH TWICE A DAY Discharge Instructions Instructions: Chest Pain (DC) Additional Instructions: 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 Stand Alone Forms: Nursing Discharge Form Referrals: Stefani King NP [Primary Care Provider] - 03/15/24 10:00 am () Activity:: Activity as Tolerated Equipment/Supplies:: No Equipment Needed Diet:: As Tolerated Discharge Orders Discharge Orders: Discharge Order (Routine); Ordered 02/29/24 Ordered By: Piper Win Discharge Data Discharge Date/Time-TO BE ENTERED AT DEPARTURE: 02/29/24 15:56 DS: Summary Time Spent with Patient providing and/or coordinating discharge services: Greater than 30 minutes Status at Discharge Functional status at discharge: independent ambulation Overall status at discharge: patient is back to baseline Mental Status: mental status grossly normal Speech and Movement: speech and movement normal Mood: congruent mood Affect: normal affect Quality:SDOH Health Related Social Needs: No Data to Display Exam Const General: cooperative, healthy appearing, comfortable and no acute distress Nutritional Appearance: overweight Orientation: alert, awake and oriented x3 HENMT Head: normal to inspection, normocephalic and atraumatic Face and sinus: normal facial exam Eyes General: appearance normal, both eyes and all related structures Neck Neck: normal visual inspection, full ROM and no JVD Chest Chest: normal inspection of the chest Resp Effort & Inspection: normal respiratory effort Auscultation: clear to auscultation bilaterally GI Inspection: normal to inspection Palpation: soft Skin General skin exam: no rashes or lesions noted Neuro General: patient alert, patient awake and patient oriented x3 Extrem General: normal to inspection and full ROM Psych Appearance: grossly normal Mental Status: mental status grossly normal Speech and Movement: speech and movement normal Mood: congruent mood Affect: normal affect DS: Data Vitals/I&O Vitals and I&O: Vital Signs Temperature 36.2 C L 02/29/24 11:54 Temperature Source Temporal Artery Scan 02/29/24 11:54 Pulse 71 02/29/24 11:54 Pulse Rhythm Regular 02/29/24 09:25 Pulse 68 02/28/24 15:20 Respiratory Rate 18 02/29/24 11:54 Respiratory Effort Normal 02/29/24 09:25 Respiratory Depth Normal 02/29/24 09:25 Respiratory Pattern Normal 02/29/24 09:25 Blood Pressure 150/92 H 02/29/24 11:54 Blood Pressure Mean 109 02/28/24 15:01 Blood Pressure Position Sitting 02/28/24 11:10 Pulse Oximetry 95 02/29/24 11:54 Oxygen Delivery Method Room Air 02/29/24 11:54 Oxygen Flow Rate 0 02/29/24 11:54 Pain Level 2 02/29/24 11:54 Comment RN is aware, she is in room. 02/28/24 17:12 Intake & Output 02/28/24 02/29/24 02/29/24 23:59 11:59 23:59 Intake Total 380 360 / 380 Balance 360 / 380 Weight 97.522 kg Intake: IV Oral 360 / 360 Other: Urine Color Yellow Urine Appearance Clear Clear Urine Odor Normal Comment per patient he voided in toilet. Voiding Methods Toilet Toilet Data Completed and Pending Labs on day of discharge: Labs from last 24 hours 02/29/24 02/29/24 13:05 06:43 WBC 7.74 RBC 4.92 Hgb 15.8 Hct 46.6 MCV 95 MCH 32.1 MCHC 33.9 RDW 12.5 Plt Count 214 MPV 9.7 Immature Gran % 0.3 Neutrophils % 59.0 Lymphocytes % 25.8 Monocytes % 8.5 Eosinophils % 5.6 Basophils % 0.8 Nucleated RBC % 0.0 Absolute Neutrophils 4.57 Absolute Lymphocytes 2.00 Absolute Monocytes 0.66 Absolute Eosinophils 0.43 Absolute Basophils 0.06 Sodium 141 Potassium 3.3 L Chloride 103 Carbon Dioxide 29.7 Anion Gap 8.3 BUN 17 Creatinine 1.3 Est GFR (CKD-EPI 2020) 58.01 Glucose 95 Calcium 9.0 Troponin I 69 H* 71 H* PFSH All Active Problems (Updated 02/29/24 @ 14:16 by Piper Win NP) Elevated troponin (Acute) Chest pain (Acute) Asymmetrical sensorineural hearing loss (Acute) Actinic Keratosis (Acute) Cerumen impaction (Acute) Tinnitus of both ears (Acute) Hyperbilirubinemia (Acute) Cardiac pacemaker (Acute) 01/14/23-Medtronic Dual pacemaker implanted, [facility]; Iain Salazar MD Overweight (BMI 25.0-29.9) (Acute 12/08/13) goal 195 (BMI 28) Hypomagnesemia (Acute) Hyperlipidemia (Acute 06/11/90) Baseline LDL 170; increased to atorvastatin 80 mg after NSTEMI in 11/2022 Hypertension (Chronic 06/11/00) Chronic kidney disease (Chronic) ASCVD (arteriosclerotic cardiovascular disease) (Acute) Medical History Actinic keratosis Seasonal affective disorder Neoplasm of unspecified behavior of bone, soft tissue, 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 Wheeler; Quad exercise Deviated nasal septum (03/11/12) Conductive hearing loss (03/11/12) Acute gallstone pancreatitis Surgical History Status post colonoscopy Status post cholecystectomy (~04/01/16) Dr. Granados S/P cardiac cath (11/22/22) Family History Mother Essential hypertension Stroke Father Colon cancer Sister Age: 70 No problems noted. Social History Smoking/Tobacco Use Status: Never Second Hand Exposure: No Smoking risk assessment performed?: Yes Alcohol Intake: current Alcohol Intake frequency: a few times a month Drug use: Never Substance use type: does not use Adopted: No Caregiver/Support person: No Household members: none Housing: house Number of Children: 2 number of grandchildren: 3 Communication Needs: None Education Level: college Details: Associate's Degree Do you need help understanding health information?: Rarely current occupation: retired Pets and animals: No Sexually active: No Current gender identity: male What is your relationship status?: How often do you talk on the phone with friends or family?: three or more times per week How often do you get together with friends or relatives?: twice per week Do you belong to any clubs or organized social groups?: yes Panel score (0-1 are the most socially isolated patients): 2 What type of physical activity do you participate in: walking and other Details: golfing 3-4 times a week Duration: > 90 minutes/day Frequency: 3-4 times per week Special raysa needs: No Seatbelt use: always Helmet use: No (Declined to answer) 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
== END 2024-02-29 15:56 | disposition home or self-care (01) ==
LOC: ER 16:24 → MS 17:08
PROVIDERS: Nurse Practitioner Acute Care; Nurse Practitioner Family; Admitting Provider Family Medicine; Emergency Provider Emergency Medicine; PCP Nurse Practitioner; Visit Provider Family Medicine
DX: R07.89 Other chest pain (principal); R74.8 Abnormal levels of other serum enzymes; Z95.0 Presence of cardiac pacemaker; I12.9 Hypertensive chronic kidney disease with stage 1 through stage 4 chronic kidney disease, or unspecified chronic kidney disease; E78.5 Hyperlipidemia, unspecified; N18.31 Chronic kidney disease, stage 3a; I25.10 Atherosclerotic heart disease of native coronary artery without angina pectoris; E83.42 Hypomagnesemia; I25.2 Old myocardial infarction; Z79.899 Other long term (current) drug therapy
CPT/HCPCS: 00123; 36415; 80048; 80053; 93005; 93308; 99285; 71046; 83735; 83880; 84443; 84484; 85025; 85610; 85730; 93010; 99222; 99239; G0378

== ENCOUNTER 2024-07-11 02:28 | Outpatient (CLI) | payer MEDICARE, BC, SELFPAY ==
[2024-07-11 22:29] LABS: PSA, Screening 0.8 ng/mL (<=6.5)
== END 2024-07-11 02:29 | disposition home or self-care (01) ==
LOC: LBO 02:28
PROVIDERS: PCP Nurse Practitioner; Visit Provider Nurse Practitioner
DX: Z12.5 Encounter for screening for malignant neoplasm of prostate (principal)
CPT/HCPCS: 36415; 84153

== ENCOUNTER 2024-11-24 10:23 | Outpatient (CLI) | payer MEDICARE, BC, SELFPAY ==
--- NOTE | 2024-11-24 10:15 | RT.EKG_ITS ---
APPROVED REPORT Exam: Resting ECG Reason for Exam: Edema, weight gain and SOB Patient Location: O HR:66 bpm ECG Measurements Heart Rate 66 AXIS KS 233 P [id number] QRSd 99 QRS -26 QT 452 T 23 QTc 474 Conclusion Atrial-paced complexes...other complexes also detected Prolonged KS interval...KS >220, V-rate 50- 90
== END 2024-11-24 10:24 | disposition home or self-care (01) ==
LOC: DI.KIM 10:24
PROVIDERS: PCP Nurse Practitioner; Visit Provider Family Medicine
DX: R60.0 Localized edema (principal); R63.5 Abnormal weight gain; R06.02 Shortness of breath
CPT/HCPCS: 93010

== ENCOUNTER 2024-11-24 11:23 | Outpatient (CLI) | payer MEDICARE, BC, SELFPAY ==
[2024-11-24 12:44] LABS: NT-proBNP 54 pg/mL (<300); Troponin I 45 ng/L (<or=76)
== END 2024-11-24 11:24 | disposition home or self-care (01) ==
LOC: LBO 11:23
PROVIDERS: PCP Nurse Practitioner; Visit Provider Family Medicine
DX: I50.9 Heart failure, unspecified (principal)
CPT/HCPCS: 36415; 83880; 84484

== ENCOUNTER 2025-02-23 00:47 | Outpatient (CLI) | payer MEDICARE, BC, SELFPAY ==
[2025-02-23 08:08] LABS: Abs Immature Grans 0.03 10^3/uL (0.0-0.06); HCT 47.8 % (40.0-50.0); HGB 15.9 g/dL (13.5-17.5); Immature Grans % 0.4 %; MCH 31.2 pg (27.0-33.0); MCHC 33.3 % (32.0-36.0); MCV 94 fL (80-95); MPV 9.7 fL (8.0-11.0); Platelet Count 211 10^3/uL (130-400); RBC 5.09 10^6/uL (4.36-5.78); RDW 12.7 % (11.8-14.1); RDW-SD 44.2 fL; WBC 7.36 10^3/uL (4.4-10.8)
[2025-02-23 08:16] LABS: Hemoglobin A1C 5.6 % (<5.7)
[2025-02-23 09:01] LABS: Anion Gap 11.1 mmol/L (3-11); BUN 21 mg/dL (7-18); CO2 28.9 mmol/L (21.0-32.0); Calcium 9.1 mg/dL (8.5-10.1); Calculated LDL 81 mg/dL (<100); Chloride 104 mmol/L (98-107); Cholesterol 146 mg/dL (<200); Estimated GFR 48.55 (mL/min/1.73m2); Glucose 104 mg/dL (74-106); HDL Cholesterol 38 mg/dL (>or=40); Potassium 4.0 mmol/L (3.5-5.1); Sodium 144 mmol/L (136-145); TSH 4.12 uIU/mL (0.36-3.74); Triglyceride 136 mg/dL (<150)
== END 2025-02-23 00:48 | disposition home or self-care (01) ==
LOC: LBO 00:48
PROVIDERS: PCP Nurse Practitioner; Referring Provider Family Medicine; Visit Provider Family Medicine
DX: I50.9 Heart failure, unspecified (principal); E78.5 Hyperlipidemia, unspecified; I10 Essential (primary) hypertension; I25.10 Atherosclerotic heart disease of native coronary artery without angina pectoris; R93.1 Abnormal findings on diagnostic imaging of heart and coronary circulation; E66.3 Overweight; Z13.9 Encounter for screening, unspecified; R73.9 Hyperglycemia, unspecified
CPT/HCPCS: 36415; 80048; 80061; 83036; 84443; 85025